=== PATIENT | female | born 1960 | race African-American/Black ===

== ENCOUNTER 2016-10-23 18:35 | Emergency (ER) | payer SELFPAY ==
[~2016-10-23] VITALS: Ht 165.1 cm; Wt 79.4 kg
[~2016-10-23 18:35] MED LIST: LEVO500T8 PO; METH-37 PO; METR500T4 PO; NAPR500T3 PO
[2016-10-23 19:00] VITALS: BP 138/87
--- NOTE | 2016-10-23 19:02 | PHYS DOC ---
General Chief Complaint: DENTAL PROBLEM Stated Complaint: DENTAL PAIN Time Seen by MD: 18:37 Source: patient Exam Limitations: no limitations Problems: History of Present Illness Initial Comments Pt is 56/F to ED c/o dental pain. Pt states pain since yesterday, OTC meds not helping. Affedted teeth 4-5, c/o pain and gum swelling/darkening. No fever/chills/n/v/d/malaise/RUSSELL/jaw pain. No DDS. Timing/Duration: yesterday Severity: severe Location: dental Prearrival Treatment: over the counter meds Modifying Factors: improves with other Associated Symptoms: tooth pain Allergies: Coded Allergies: No Known Drug Allergies (Unverified , 08/28/15) Past Medical History Medical History: no pertinent history Surgical History: noncontributory Family History Significant Family History: no pertinent family hx Social History Smoker: cigarettes Alcohol: none Drugs: none Constitutional: denies chills, denies diaphoresis, denies fever, denies malaise Ears: denies pain, denies tinnitus Nose: denies congestion, denies epistaxis Mouth: see HPI Throat: denies pain, denies swelling, denies neck stiffness, denies painful swallowing Respiratory: denies cough, denies shortness of breath, denies wheezing Cardiovascular: denies chest pain, denies palpitations, denies syncope Gastrointestinal: denies nausea, denies vomiting Physical Exam General Appearance: no apparent distress Eyes: bilateral eye EOMI, bilateral eye PERRL, bilateral eye normal inspection Nose: normal inspection Mouth/Throat: other (teeth 4-5 caries with gingival swell/darkening, no purulence/jaw pain) Neck: non-tender, supple, trachea midline Cardiovascular/Respiratory: normal peripheral pulses, no respiratory distress 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 Pt expressed agreement/understanding with treatment plan Departure Time of Disposition: 19:00 Disposition: 01 HOME, SELF-CARE Diagnosis: dental caries, tobaccoism Condition: GOOD Patient Instructions: Dental Caries, Smoking Cessation Additional Instructions: [place] and floss regularly. Stop smoking. Rx: amoxicillin, norco 5mg #15 Follow up with a dentist next available appointment to resolve this issue. Call tomorrow morning to schedule appointment. Return to ED with new or changing symptoms. KAEL OLIVIA DO Oct 23, 2016 19:02
[2016-10-23] MEDS ORDERED: HYDR-971 PO (19:04)
[2016-10-23] MEDS ORDERED: AMOX875T PO (19:04)
[2016-10-23] MEDS ORDERED: AMOXICILLIN 500 MG CAPSULE PO ONE (19:30)
[2016-10-23] MEDS ORDERED: HYDROCODONE/APAP 7.5/325MG TABLET. PO ONE (19:30)
== END 2016-10-23 19:20 | disposition home or self-care (01) ==
LOC: ER 18:35
DX: K02.9 Dental caries, unspecified (principal); F17.210 Nicotine dependence, cigarettes, uncomplicated
CPT/HCPCS: 99283

== ENCOUNTER 2016-11-10 14:51 | Emergency (ER) | payer SELFPAY ==
[~2016-11-10] VITALS: Ht 165.1 cm; Wt 81.0 kg
[2016-11-10 14:51] VITALS: BP 152/95
[~2016-11-10 14:51] MED LIST changes: +AMOX875T PO; +HYDR-971 PO
--- NOTE | 2016-11-10 15:10 | PHYS DOC ---
General Chief Complaint: DENTAL PROBLEM Stated Complaint: Dental Pain Time Seen by MD: 15:07 Problems: History of Present Illness Initial Comments Pt is 56/F to ED c/o dental pain. Pt states her dental pain persists teeth 4-5. When asked if she'd followed up with dentist as recommended "oh I don't have a dentist." I reminded her that she notified me last ED visit she had one in mind to follow up with and would call to schedule appt LEYLA. "Well you know I don't have a car, I can't go see a dentist." No new or progressive symptoms, no RUSSELL/jaw pain/fever/chills/malaise/n/v. Requesting pain meds. Pt was seen here by me 10/23/16 for same problem. That visit pt told me she did not have a dentist personally but intended to follow up with one recommended to her. I advised her she had to f/u with dentist, that we would not continue to rx pain medications if she didn't seek treatment. Timing/Duration: other Severity: severe Location: dental Prearrival Treatment: over the counter meds, prescription meds Modifying Factors: improves with other Associated Symptoms: tooth pain Allergies: Coded Allergies: No Known Drug Allergies (Unverified , 08/28/15) Past Medical History Medical History: no pertinent history Surgical History: noncontributory Family History Significant Family History: no pertinent family hx Social History Smoker: cigarettes Alcohol: none Drugs: none Constitutional: denies chills, denies diaphoresis, denies fever, denies malaise Ears: denies pain, denies tinnitus Nose: denies clots, denies congestion Mouth: see HPI Throat: denies pain, denies swelling, denies neck stiffness Respiratory: denies cough, denies shortness of breath Cardiovascular: denies chest pain, denies palpitations Gastrointestinal: denies nausea, denies vomiting Musculoskeletal: denies joint swelling, denies neck pain Neurological: denies headache, denies numbness, denies paresthesia Physical Exam General Appearance: obese (pained expression) Eyes: bilateral eye EOMI, bilateral eye PERRL, bilateral eye normal inspection Nose: normal inspection Mouth/Throat: other (mild discoloration gingiva tooth 5, no purulence/bony TTP improved from prior ED visit) Neck: non-tender, supple Cardiovascular/Respiratory: normal peripheral pulses, normal breath sounds 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 ED can provide symptom control and help avoid serious infection complications. It is a medical risk to you to continue to prescribe pain medications from the ED without treating the actual cause. Rx: ibuprofen 800mg, tylenol #3 (five) for severe breakthru pain. Stop smoking, seek medical assistance if necessary. Per your request ED staff will provide you information about [facility] dental school , [facility], and [facility]. Call today, schedule next available dental appointment. Return with new/changing symptoms. KAEL OLIVIA DO Nov 10, 2016 15:10
[2016-11-10] MEDS ORDERED: ACET-704 PO (15:20)
[2016-11-10] MEDS ORDERED: IBUP800T PO (15:20)
[2016-11-10] MEDS ORDERED: CEPH500C PO (15:20)
== END 2016-11-10 15:21 | disposition home or self-care (01) ==
LOC: ER 14:51
DX: K02.9 Dental caries, unspecified (principal); F17.210 Nicotine dependence, cigarettes, uncomplicated; Z91.19 Patient's noncompliance with other medical treatment and regimen
CPT/HCPCS: 99283

== ENCOUNTER 2017-06-16 12:01 | Emergency (ER) | payer SELFPAY ==
[~2017-06-16] VITALS: Ht 167.6 cm; Wt 79.4 kg
[~2017-06-16 12:01] MED LIST changes: +ACET-704 PO; +CEPH500C PO; +IBUP800T19 PO; -METR500T4 PO; +METR500T8 PO; -NAPR500T3 PO; +NAPR500T4 PO
[2017-06-16 12:59] VITALS: BP 128/85
--- NOTE | 2017-06-16 13:20 | PHYS DOC ---
General Chief Complaint: WRIST PAIN Stated Complaint: LEFT WRIST PAIN Time Seen by MD: 12:40 Source: patient Exam Limitations: no limitations Problems: History of Present Illness Initial Comments Patient is a 56-year-old female who comes in the ED complaining of left wrist pain. Patient states that she's had worsening medial left wrist pain for the past 2 months. Upon receiving report from nursing imaging ordered prior to my seeing the patient due to heavy ED volume. Imaging negative, patient states that she has trouble/severe pain with radial deviation at the wrist. She states that she feels like something is grinding up her medial radius and notes there is some swelling. 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 She states the pain is severe with palpation and range of motion at the wrist denies fever chills sweats or myalgias. No prior evaluation [id number] medications helped some with the pain but did not resolve the condition. Onset: other Severity: severe Pain/Injury Location: left forearm, left wrist Method of Injury: unknown Modifying Factors: worse with jarring, worse with movement, improves with rest Allergies: Coded Allergies: No Known Drug Allergies (Unverified , 08/28/15) Past Medical History Medical History: no pertinent history Surgical History: noncontributory Family History Significant Family History: no pertinent family hx Social History Smoker: cigarettes Alcohol: none Drugs: none Review of Systems Constitutional: denies chills, denies diaphoresis, denies fever Respiratory: denies cough, denies shortness of breath Cardiovascular: denies chest pain, denies palpitations Gastrointestinal: denies diarrhea, denies nausea, denies vomiting Musculoskeletal: see HPI Skin: see HPI Psychiatric/Neurological: denies numbness, denies paresthesia, denies pre- existing deficit, denies tingling, denies weakness (ecchymotic) Physical Exam General Appearance: WD/WN, no apparent distress Neck: non-tender, supple Cardiovascular/Respiratory: normal peripheral pulses (smoking), no respiratory distress Back: no CVA tenderness, no vertebral tenderness Elbow/Forearm: swelling (mild swelling at the distal medial radius) Wrist: soft tissue tenderness, swelling (positive left Bryon test) Neurologic/Tendon: normal sensation, normal motor functions Psychiatric: alert, oriented x 3 Orders, Labs, Meds PATIENT: BRITTNEY SMITH ACCOUNT: [id number] : 1960 LOCATION: ER AGE: 56 SEX: F EXAM STATUS: REG ER ORD. PHYSICIAN: KAEL OLIVIA DO REASON: atraumatic wrist pain PROCEDURE: WRIST 3V LEFT 4 view study of the left wrist History: Left wrist pain for a few months. No known recent injury. Findings: No acute fracture or dislocation or osteolytic process is seen. Radiocarpal articulation is maintained. No significant change is seen. IMPRESSION: No significant osseous abnormality is evident. DICTATED AND SIGNED BY: SKYE ZAPATA MD DATE: 06/16/17 1313 CC: PCP,KELLY; KAEL OLIVIA DO ~ I discussed de Quervain's tenosynovitis treatment and prognosis. Patient refuses injection treatment at this time, I discussed prescription and over-the- counter medications as well as icing and wrist splint. I discussed signs and symptoms to monitor as well as indications for urgent return to the department. I discussed smoking cessation patient's questions were answered to her satisfaction she expressed agreement and understanding with the treatment plan. She was neurovascularly intact after splint placed. Departure Time of Disposition: 13:37 Disposition: 01 HOME, SELF-CARE Diagnosis: de Quervain's tenosynovitis Condition: GOOD Patient Instructions: De Quervain's Disease Additional Instructions: Wear thumb spica splint until follow-up with your doctor. No use of left hand until cleared by your doctor. Ice to affected area 20 minutes 4-6 times daily. [id number] ibuprofen for baseline discomfort. Prescription: Prednisone 20 mg quantity 10, [place] 5 mg quantity 5 Follow-up with your doctor in 1-2 weeks for recheck. May need orthopedics referral as outpatient. Return to ED with new or changing symptoms. KAEL OLIVIA DO Jun 16, 2017 13:20
[2017-06-16] MEDS ORDERED: HYDR-971 PO (13:37)
[2017-06-16] MEDS ORDERED: PRED20TA PO (13:37)
== END 2017-06-16 14:07 | disposition home or self-care (01) ==
LOC: ER 12:01
DX: M65.4 Radial styloid tenosynovitis [de Quervain] (principal); F17.210 Nicotine dependence, cigarettes, uncomplicated
CPT/HCPCS: 29125; 73110; 99284-25

== ENCOUNTER 2019-01-13 11:58 | Emergency (ER) | payer SELFPAY ==
[~2019-01-13] VITALS: Ht 167.6 cm; Wt 81.0 kg
[~2019-01-13 11:58] MED LIST changes: +HYDR-3165 PO; -HYDR-971 PO; +METR-34 PO; -METR500T8 PO; +NAPR-514 PO; -NAPR500T4 PO; +PRED20TA PO
[2019-01-13 12:00] VITALS: BP 153/93
[2019-01-13] MEDS ORDERED: DICL50TA4 PO (12:25)
[2019-01-13] MEDS ORDERED: AMOX500C PO (12:25)
--- NOTE | 2019-01-13 12:26 | PHYS DOC ---
Past History Past Medical History: Arthritis Past Surgical History: Hysterectomy Smoking: Less than 1pk/day Additional Smoking Information: 2-3 PER DAY Alcohol Use: Occasionally Drug Use: None Adult General Chief Complaint Chief Complaint: DENTAL PROBLEM HPI HPI Patient is a 58-year-old female presents to the emergency department for evaluation of right upper facial swelling, and dental pain in her right upper an terior molar. She has not had any purulent discharge in her mouth, voice changes, or difficulty breathing. Palpation of the affected areas worsen her pain. She has not had any fevers or chills. Review of Systems Review of Systems Constitutional: Denies fever or chills [] Eyes: Denies change in visual acuity, redness, or eye pain [] HENT: Denies nasal congestion or sore throat [] Respiratory: Denies cough or shortness of breath [] Neurologic: Denies headache, focal weakness or sensory changes [] Allergies Allergies Allergies Coded Allergies Type Severity Reaction Last Updated Verified No Known Drug Allergies 01/13/19 No Physical Exam Physical Exam PHYSICAL EXAM: CONSTITUTIONAL: Well developed, well nourished HEAD: normocephalic, atraumatic EENT: PERRL, EOMI. Conjunctivae normal color, sclerae non-icteric; moist mucous membranes. There are several missing teeth, with tenderness to palpation of the right upper anterior molar, without any gross exam evidence of dental abscess in the gingival surface. There is soft tissue swelling on the right face, and the maxillary area, with tenderness to palpation, but no physical exam evidence of cutaneous abscess, warmth, or erythema to the skin. The airways pain. NECK: Supple, non-tender; no meningismus. LUNGS: Lungs CTA, breathing even and unlabored. Normal air movement. HEART: Regular rate and rhythm, no murmur CHEST: No deformity; non-tender SKIN: No rash; no diaphoresis NEURO: Alert; normal speech and cognition; CN's grossly intact; strength grossly intact without focal deficit. Current Patient Data Vital Signs Vital Signs Date Time Temp Pulse Resp B/P (MAP) Pulse Ox O2 Delivery O2 Flow Rate FiO2 01/13/19 12:00 98.3 94 20 97 Room Air EKG EKG [] Radiology/Procedures Radiology/Procedures [] Course & Med Decision Making Course & Med Decision Making I discussed importance of smoking cessation with the patient, the need for dental follow-up, and return precautions. The patient will be given resources to facilitate dental follow-up. Dragon Disclaimer Dragon Disclaimer This electronic medical record was generated, in whole or in part, using a voice recognition dictation system. Departure Departure: Impression: Primary Impression: Pain, dental Additional Impression: Dental abscess Disposition: 01 HOME, SELF-CARE Condition: STABLE Referrals: PCP,NO (PCP) Patient Instructions: Dental Abscess, Dental Pain Scripts Diclofenac Sodium (DICLOFENAC SODIUM) 50 Mg Tablet.dr 1 TAB PO TID PRN for PAIN, #20 TAB 0 Refills Prov: MAHIN MONET MD 01/13/19 Amoxicillin (AMOXICILLIN) 500 Mg Capsule 1 CAP PO TID for -, #30 CAP Prov: MAHIN MONET MD 01/13/19 Problem Qualifiers MAHIN MONET MD Jan 13, 2019 12:26
[2019-01-13] MEDS ORDERED: IBUPROFEN 400 MG TABLET. PO ONE ×2 (12:35→12:45)
== END 2019-01-13 12:34 | disposition home or self-care (01) ==
LOC: ER 11:58
DX: K04.7 Periapical abscess without sinus (principal); M19.90 Unspecified osteoarthritis, unspecified site; F17.200 Nicotine dependence, unspecified, uncomplicated
CPT/HCPCS: 99283

== ENCOUNTER 2019-02-06 10:40 | Emergency (ER) | payer SELFPAY ==
[~2019-02-06] VITALS: Ht 167.6 cm; Wt 86.4 kg
[~2019-02-06 10:40] MED LIST changes: +AMOX500C PO; +DICL50TA4 PO
--- NOTE | 2019-02-06 11:05 | PHYS DOC ---
Past History Past Medical History: Arthritis Past Surgical History: Cholecystectomy, Hysterectomy Smoking: Less than 1pk/day Alcohol Use: Occasionally Drug Use: None Adult General Chief Complaint Chief Complaint: SHOULDER INJURY [facility] HPI 58-year-old female presents with left shoulder pain. She tells me that she has had posterior shoulder pain in this area a few months. It feels like a knife being pushed in and turned. Along the posterior superior aspect of that shoulder. She denies any trauma or particular event when this started. It has been gradually getting worse. It is there all the time now. She gets some relief when she puts a hot pad on that area, but the pain resumes when she takes it off. She's been taking Tylenol and ibuprofen without relief. She comes in today because now there is pain radiating down across her deltoid toward the elbow. She has not had that before. This feeling started after she woke up this morning. She believes she has decreased strength due to the pain. She denies fever or chills. No history of previous injury to her shoulder or neck. She has no other concerns or complaints at this time. Review of Systems Review of Systems Constitutional: Denies fever or chills [] Eyes: Denies change in visual acuity, redness, or eye pain [] HENT: Denies nasal congestion or sore throat [] Respiratory: Denies cough or shortness of breath [] Cardiovascular: No additional information not addressed in HPI [] GI: Denies abdominal pain, nausea, vomiting, bloody stools or diarrhea [] : Denies dysuria or hematuria [] Musculoskeletal: Left shoulder pain[] Integument: Denies rash or skin lesions [] Neurologic: Denies headache, focal weakness or sensory changes [] Endocrine: Denies polyuria or polydipsia [] All other systems were reviewed and found to be within normal limits, except as documented in this note. Allergies Allergies Allergies Coded Allergies Type Severity Reaction Last Updated Verified No Known Drug Allergies 01/13/19 No Physical Exam Physical Exam Constitutional: Well developed, well nourished, no acute distress, non-toxic appearance. [] HENT: Normocephalic, atraumatic, bilateral external ears normal, oropharynx moist, no oral exudates, nose normal. [] Eyes: PERRLA, EOMI, conjunctiva normal, no discharge. [] Neck: Normal range of motion, no tenderness, supple, no stridor. [] Cardiovascular:Heart rate regular rhythm, no murmur [] Lungs & Thorax: Bilateral breath sounds clear to auscultation [] Abdomen: Bowel sounds normal, soft, no tenderness, no masses, no pulsatile masses. [] Skin: Warm, dry, no erythema, no rash. [] Back: No tenderness, no CVA tenderness. [] Extremities: Tenderness over the left supraspinatus, pain with empty can test, strength 5 out of 5 compared to right[] Neurologic: Alert and oriented X 3, normal motor function, normal sensory function, no focal deficits noted. [] Psychologic: Affect normal, judgement normal, mood normal. [] Current Patient Data Vital Signs Vital Signs Date Time Temp Pulse Resp B/P (MAP) Pulse Ox O2 Delivery O2 Flow Rate FiO2 02/06/19 10:53 98.1 90 18 98 Room Air EKG EKG [] Radiology/Procedures Radiology/Procedures [] Course & Med Decision Making Course & Med Decision Making Pertinent Labs and Imaging studies reviewed. (See chart for details) The patient's x-ray shows some arthritis, acute findings. I suspect that this is supraspinatus tendinitis. I also cannot rule out that this is referred pain coming from her cervical spine. I've advised the patient to establish with a PCP in follow-up as soon as possible. She could benefit from further workup as well as physical therapy. I looked the patient up in the [facility] database and she did not have a file. I will discharge her with [place] 5/325 for her pain. She can also use ibuprofen at the same time. She is stable for discharge at this time. [] Dragon Disclaimer Dragon Disclaimer This electronic medical record was generated, in whole or in part, using a voice recognition dictation system. Departure Departure: Impression: Primary Impression: Supraspinatus tendinitis Disposition: 01 HOME, SELF-CARE Condition: STABLE Referrals: PCP,KELLY (PCP) Patient Instructions: Rotator Cuff Tendinitis Scripts Hydrocodone Bit/Acetaminophen (NORCO 5-325 TABLET) 1 Each Tablet 1 TAB PO PRN Q6HRS PRN for PAIN, #14 TAB 0 Refills Prov: RODNEY MARTINEZ DO 02/06/19 Problem Qualifiers Primary Impression: Supraspinatus tendinitis Laterality: left Qualified Codes: M75.92 - Shoulder lesion, unspecified, left shoulder RODNEY MARTINEZ DO Feb 06, 2019 11:05
[2019-02-06 11:57] VITALS: BP 154/87
[2019-02-06] MEDS ORDERED: HYDROcodone/APAP 5/325MG 1 TAB TABLET PO ONE (12:00)
[2019-02-06] MEDS ORDERED: HYDR-3165 PO (12:21)
--- NOTE | 2019-02-06 13:01 | RAD ---
EXAM: LEFT SHOULDER 3 VIEWS. HISTORY: Posterior left shoulder pain. COMPARISON: None. FINDINGS: No fractures are identified. Glenohumeral joint spaces and alignment are maintained. Acromioclavicular osteoarthritis is moderate. There is mild superior subluxation of the distal clavicle by approximately 4 mm. The coracoclavicular densities is maintained. IMPRESSION: 1. Mild superior subluxation of the distal clavicle with moderate acromioclavicular osteoarthritis. An examination with and without weights could further assess for acromioclavicular instability if there is persistent concern. Electronically signed by: Christian Jarquin MD (02/06/2019 12:59 PM) [facility]
== END 2019-02-06 12:35 | disposition home or self-care (01) ==
LOC: ER 10:40
DX: M75.92 Shoulder lesion, unspecified, left shoulder (principal); M19.90 Unspecified osteoarthritis, unspecified site; F17.200 Nicotine dependence, unspecified, uncomplicated
CPT/HCPCS: 73030; 99284

== ENCOUNTER 2019-10-02 15:06 | Emergency (ER) | payer SELFPAY ==
[~2019-10-02] VITALS: Ht 167.6 cm; Wt 90.9 kg
[2019-10-02 15:20] VITALS: BP 187/108
--- NOTE | 2019-10-02 16:47 | RAD ---
EXAM: Right lower extremity venous Doppler. HISTORY: Right lower extremity pain/swelling. COMPARISON: None. FINDINGS: Grayscale and Doppler analysis of the right lower extremity deep venous system was performed with graded compression and augmentation. The common femoral, greater saphenous, superficial femoral, popliteal and calf veins were assessed. There is no evidence of deep venous thrombosis. IMPRESSION: 1. No evidence of deep venous thrombosis. Electronically signed by: Christian Jarquin MD (10/02/2019 4:44 PM) [id number]
[2019-10-02] MEDS ORDERED: DICL50TA4 PO (17:52)
--- NOTE | 2019-10-02 17:53 | PHYS DOC ---
Past History Past Medical History: No Pertinent History, Arthritis Past Surgical History: Cholecystectomy, Hysterectomy Additional Past Surgical Histo: hernia sx Smoking: Less than 1pk/day Alcohol Use: Occasionally Drug Use: None Adult General Chief Complaint Chief Complaint: LOWER EXT PAIN [facility] HPI Patient is a 59-year-old female who presents with complaint of right leg pain and concerns that she may have a blood clot. Patient states that leg has been hurting for about a week now. She does indicate that pain is worsened with weightbearing. She denies any injury to the leg. She rates pain at a 4 out of 10. Patient indicates that she has a family history of blood clots and is concerned that she may have a blood clot herself. She denies any chest pain or shortness breath. She also denies any cough.[] Review of Systems Review of Systems Constitutional: Denies fever or chills [] Respiratory: Denies cough or shortness of breath [] Cardiovascular: No additional information not addressed in HPI [] GI: Denies abdominal pain, nausea, vomiting, bloody stools or diarrhea [] Musculoskeletal: Complains of right leg pain [] Integument: Denies rash or skin lesions [] Neurologic: Denies headache, focal weakness or sensory changes [] All other systems were reviewed and found to be within normal limits, except as documented in this note. Allergies Allergies Allergies Coded Allergies Type Severity Reaction Last Updated Verified No Known Drug Allergies 01/13/19 No Physical Exam Physical Exam Constitutional: Well developed, well nourished, no acute distress, non-toxic appearance. [] HENT: Normocephalic, atraumatic, bilateral external ears normal, oropharynx moist, no oral exudates, nose normal. [] Eyes: PERRLA, EOMI, conjunctiva normal, no discharge. [] Neck: Normal range of motion, no tenderness, supple, no stridor. [] Cardiovascular: Regular rate and rhythm[] Lungs & Thorax: Bilateral breath sounds clear to auscultation [] Abdomen: Bowel sounds normal, soft, no tenderness. [] Skin: Warm, dry, no erythema, no rash. [] Extremities: Right lower leg demonstrates some tenderness in the mid calf, no edema. [] Neurologic: Alert and oriented X 3, no focal deficits noted. [] Current Patient Data Vital Signs Vital Signs Date Time Temp Pulse Resp B/P (MAP) Pulse Ox O2 Delivery O2 Flow Rate FiO2 10/02/19 15:20 92 18 187/108 (134) 97 EKG EKG [] Radiology/Procedures Radiology/Procedures [] Impressions: PROCEDURE: VENOUS LOWER EXTREMITY RIGHT EXAM: Right lower extremity venous Doppler. HISTORY: Right lower extremity pain/swelling. COMPARISON: None. FINDINGS: Grayscale and Doppler analysis of the right lower extremity deep venous system was performed with graded compression and augmentation. The common femoral, greater saphenous, superficial femoral, popliteal and calf veins were assessed. There is no evidence of deep venous thrombosis. IMPRESSION: 1. No evidence of deep venous thrombosis. Electronically signed by: Christian Jarquin MD (10/02/2019 4:44 PM) [id number] Course & Med Decision Making Course & Med Decision Making Pertinent Labs and Imaging studies reviewed. (See chart for details) [] Dragon Disclaimer Dragon Disclaimer This electronic medical record was generated, in whole or in part, using a voice recognition dictation system. Departure Departure: Impression: Primary Impression: Right leg pain Disposition: 01 HOME, SELF-CARE Condition: STABLE Referrals: PCP,NO (PCP) Patient Instructions: Musculoskeletal Pain Scripts Diclofenac Sodium (DICLOFENAC SODIUM) 50 Mg Tablet. 1 TAB PO BID PRN for PAIN, #20 TAB Prov: ALDA RAMESH Jr. DO 10/02/19 ALDA RAMESH Jr. DO Oct 02, 2019 17:53
== END 2019-10-02 18:00 | disposition home or self-care (01) ==
LOC: ER 15:06
DX: M79.604 Pain in right leg (principal); R22.41 Localized swelling, mass and lump, right lower limb; M19.90 Unspecified osteoarthritis, unspecified site; F17.200 Nicotine dependence, unspecified, uncomplicated
CPT/HCPCS: 93971; 99284-25

== ENCOUNTER 2020-06-24 13:38 | Emergency (ER) | payer SELFPAY ==
[~2020-06-24] VITALS: Ht 167.6 cm; Wt 90.9 kg
[2020-06-24 13:44] VITALS: BP 180/90
[2020-06-24] MEDS ORDERED: KETOROLAC 60 MG/2 ML VIAL. IM ONE (14:15)
--- NOTE | 2020-06-24 14:24 | PHYS DOC ---
Past History Past Medical History: No Pertinent History, Arthritis Past Surgical History: Cholecystectomy, Hysterectomy Additional Past Surgical Histo: hernia sx Smoking: Less than 1pk/day Alcohol Use: Occasionally Drug Use: None Adult General Chief Complaint Chief Complaint: UPPER EXTREMITY PAIN [facility] HPI Patient is a 59 year old female who presents with right wrist and thumb pain. Patient states she woke up approximately 7 days ago with pain in her right wrist that radiated down to her thumb area, denies injury. Patient states that the pain was about a 1/10 on a 1-10 pain scale and progressively became worse to a 10/10 pain on a 1-10 pain scale approximately 2 days ago. Patient states she has taken [id number] ibuprofen, Tylenol, and Naprosyn without relief. Patient states she last took Tylenol this morning 500 mg without relief. Patient states she does not work, however she was taking care of her family members at home over the past year who have recently including her mother, her father, and her daughter who approximately 6 months ago. Patient denies any recent fever or chills, visual changes, or nasal congestion cough or shortness of breath. Patient denies any chest pains, abdominal pains, nausea, vomiting, diarrhea, or constipation. Patient denies any problems urinating, patient does state that she has some tailbone pain which has been chronic for several years. Patient states she has no skin rashes, denies headaches, swelling of her glands, recent depressions or anxieties, patient denies homicidal or suicidal ideation. Patient denies any Covid virus symptoms, does not wish to be tested for the Covid virus today. Review of Systems Review of Systems Constitutional: Denies fever or chills Eyes: Denies change in visual acuity, redness, or eye pain HENT: Denies nasal congestion or sore throat Respiratory: Denies cough or shortness of breath Cardiovascular: No additional information not addressed in HPI GI: Denies abdominal pain, nausea, vomiting, bloody stools or diarrhea : Denies dysuria or hematuria Musculoskeletal: Complains of chronic tailbone pain that she has had for years, patient's main concern is her right wrist pain that radiates to her right thumb, without relief taking [id number] Tylenol, ibuprofen, Naprosyn. Integument: Denies rash or skin lesions Neurologic: Denies headache, focal weakness or sensory changes Psychiatric: Patient denies recent anxieties, depressions, homicidal or suicidal ideation. All other systems were reviewed and found to be within normal limits, except as documented in this note. Current Medications Current Medications Patient denies being on any home prescription medications. Current Medications Medications (Trade) Dose Ordered Sig/[facility] Start Time Stop Time Status Last Admin Dose Admin Ketorolac Tromethamine (Toradol Im) 60 mg 1X ONCE 06/24/20 14:15 06/24/20 14:16 UNV Allergies Allergies Allergies Coded Allergies Type Severity Reaction Last Updated Verified No Known Drug Allergies 01/13/19 No Physical Exam Physical Exam Constitutional: Well developed, well nourished, no acute distress, non-toxic appearance. HENT: Normocephalic, atraumatic, bilateral external ears normal, oropharynx moist, no oral exudates, nose normal. Eyes: PERRLA, EOMI, conjunctiva normal, no discharge. Neck: Normal range of motion, no tenderness, supple, no stridor. Cardiovascular:Heart rate regular rhythm, no murmur Lungs & Thorax: Bilateral breath sounds clear to auscultation Abdomen: Bowel sounds normal, soft, no tenderness, no masses, no pulsatile masses. Skin: Warm, dry, no erythema, no rash. Back: No tenderness, no CVA tenderness. Extremities: No tenderness, no cyanosis, no clubbing, ROM intact, no edema to all extremities except for patient's right wrist no swelling appreciated, no crepitus, no deformity, limited AROM related to pain, limited PROM related to patient's complaint of pain, pain to palpation to volar and dorsal radial zone surface area, skin normal temperature to touch, distal cap refill less than 2 seconds, no erythema, no ecchymosis noted, unable to perform Nehal's test or Phalen's test related to patient's pain. Neurologic: Alert and oriented X 3, normal motor function, normal sensory function, no focal deficits noted. Psychologic: Affect normal, judgement normal, mood normal. EKG EKG [] Radiology/Procedures Radiology/Procedures []STATUS: [place] PHYSICIAN: MARLENY DUGGAN APRN REASON: NONTRAUMATIC PAIN/SWELLING RT DISTAL RADIUS TO THUMB PROCEDURE: HAND RIGHT 3V Examination: WRIST 3V RIGHT, HAND RIGHT 3V History: NONTRAUMATIC PAIN/SWELLING RT DISTAL RADIUS TO THUMB Comparison/Correlation: None Findings: 3 images of the right hand in 3 images of the right wrist were obtained. Rings are present about the second and fourth proximal phalanges. Degenerative remodeling of the interphalangeal joint is present. No displaced fracture or bone destruction. Soft tissues are unremarkable. Mild distal radioulnar joint degenerative change present. Impression: Degenerative changes corresponding to age. No acute process. Electronically signed by: Andrade Alexis MD (06/24/2020 2:58 PM) [id number] DICTATED AND SIGNED BY: ANDRADE ALEXIS MD DATE: 06/24/20 1458 CC: MARLENY DUGGAN APRN; PCP,NO ~ Heart Score Risk Factors: Risk Factors: DM, Current or recent (<one month) smoker, HTN, HLP, family history of CAD, obesity. Risk Scores: Risk Factors: DM, Current or recent (<one month) smoker, HTN, HLP, family history of CAD, obesity. Course & Med Decision Making Course & Med Decision Making Pertinent Labs and Imaging studies reviewed. (See chart for details) 59-year-old female patient presents emergency department complaining of nontraumatic pain to the right wrist that started approximately week ago and became increasingly worse to where she rated a 10/10 pain on a 1-10 pain scale. Patient is complaint of pain is not congruent with physical findings, diagnosis of carpal tunnel most likely related to presentation and physical examination. X-rays read by house radiologist negative for acute process, showed degenerative changes only. Patient was given 60 mg of IM Toradol which helped with her pain upon reexamination patient was able to move wrist and thumb into normal position. Explained findings to patient will give 80 mg Depo-Medrol IM prior to discharge, use of Velcro wrist splint until reexamined by her primary care physician. This is unlikely a cervical radiculopathy, cervicals spondylitic myelopathy, brachial plexopathy, median neuropathy, motor neuron disease, fibromyalgia, or compartment syndrome related to no trauma or no recent trauma. Patient gave verbal understanding of discharge home medications of 600 mg Motrin, 50 mg tramadol, Medrol Dosepak, use of Velcro wrist splint, follow- up soon with primary care physician for reexamination. Patient had no further questions or concerns, patient discharged home without incident. Dragon Disclaimer Dragon Disclaimer This electronic medical record was generated, in whole or in part, using a voice recognition dictation system. Departure Departure: Impression: Primary Impression: Carpal tunnel syndrome of right wrist Disposition: 01 DC HOME SELF CARE/HOMELESS Condition: IMPROVED Referrals: PCPKELLY (PCP) Patient Instructions: Carpal Tunnel Syndrome Additional Instructions: Take prescribed medications as directed, use the wrist splint for comfort until you see your doctor soon. Return to the emergency department for worsening symptoms Scripts Tramadol Hcl (TRAMADOL HCL) 50 Mg Tablet 50 MG PO PRN Q6HRS PRN for PAIN, #10 TAB 0 Refills Prov: MARLENY DUGGAN APRN 06/24/20 Methylprednisolone (MEDROL) 4 Mg Tab.ds.pk 1 PKG PO UD for CARPAL TNNEL SYNDROME, #1 PKG 0 Refills Prov: MARLENY DUGGAN APRN 06/24/20 Ibuprofen (Ibu) 600 Mg Tablet 1 TAB PO Q6HRS for RIGHT WRIST PAIN for 7 Days, #28 TAB 0 Refills Prov: MARLENY DUGGAN APRN 06/24/20 MARLENY DUGGAN APRN Jun 24, 2020 14:24
--- NOTE | 2020-06-24 15:01 | RAD ---
Examination: WRIST 3V RIGHT, HAND RIGHT 3V History: NONTRAUMATIC PAIN/SWELLING RT DISTAL RADIUS TO THUMB Comparison/Correlation: None Findings: 3 images of the right hand in 3 images of the right wrist were obtained. Rings are present about the second and fourth proximal phalanges. Degenerative remodeling of the interphalangeal joint is present. No displaced fracture or bone destruction. Soft tissues are unremarkable. Mild distal radioulnar joint degenerative change present. Impression: Degenerative changes corresponding to age. No acute process. Electronically signed by: Andrade Yin MD (06/24/2020 2:58 PM) [id number]
[2020-06-24] MEDS ORDERED: methylPREDNISolone ACETATE 80 MG/ML VIAL. IM ONE (15:30)
[2020-06-24] MEDS ORDERED: IBUP-571 PO (15:34)
[2020-06-24] MEDS ORDERED: METH4TAB2 PO (15:34)
[2020-06-24] MEDS ORDERED: TRAM50TA PO (15:34)
== END 2020-06-24 15:48 | disposition home or self-care (01) ==
LOC: ER 13:38
DX: G56.01 Carpal tunnel syndrome, right upper limb (principal); M25.531 Pain in right wrist; M79.644 Pain in right finger(s); M19.90 Unspecified osteoarthritis, unspecified site; F17.200 Nicotine dependence, unspecified, uncomplicated; Z90.49 Acquired absence of other specified parts of digestive tract; Z90.710 Acquired absence of both cervix and uterus; Z98.890 Other specified postprocedural states
CPT/HCPCS: 73110; 73130; 96372; 99284; J1885

== ENCOUNTER 2020-10-19 10:27 | Inpatient (IN) | payer SELFPAY ==
[~2020-10-19] VITALS: Ht 165.1 cm; Wt 84.5 kg
[~2020-10-19 10:27] MED LIST changes: +IBUP-571 PO; +METH4TAB2 PO; +TRAM50TA PO
--- NOTE | 2020-10-19 10:41 | PHYS DOC ---
Past History Past Medical History: No Pertinent History, Arthritis Past Surgical History: Cholecystectomy, Hysterectomy Additional Past Surgical Histo: hernia sx Smoking: Less than 1pk/day Alcohol Use: Occasionally Drug Use: None General Adult EDM: Chief Complaint: UPPER EXTREMITY PAIN HPI: HPI: 60 yo F PMH OA and tobacco dependence presents to the ed with c/o sharp left shoulder and left scapular pain, radiating down her left arm and back stating " something ain't right doc." States she has had chronic left shoulder pain but it has significantly worsened since 2 PM yesterday, no relief with a "couple tablets of ibuprofen." Reports no routine primary care, is not on any blood pressure medicine. Patient reports both biological parents and even her daughter from congestive heart failure complications. EMR was reviewed and last CTA of the chest and pelvis was performed in 2013. Has no routine primary medical care-is aware she has hypertension but takes no medications for it. Denies any cocaine, alcohol or methamphetamine abuse. Review of Systems: Review of Systems: Constitutional: Denies fever or chills Eyes: Denies change in visual acuity HENT: Denies nasal congestion or sore throat Respiratory: Denies cough or shortness of breath or hemoptysis Cardiovascular: Denies chest pressure/heaviness/tightness or edema or syncope GI: Denies abdominal pain, nausea, vomiting, bloody stools or diarrhea : Denies dysuria or hematuria Musculoskeletal: Denies joint pain or swelling Integument: Denies rash or diaphoresis Neurologic: Denies headache, neck stiffness, focal weakness or sensory changes Endocrine: Denies polyuria or polydipsia Lymphatic: Denies swollen glands Psychiatric: Denies depression or anxiety Current Medications: Current Meds: Current Medications Medications (Trade) Dose Ordered Sig/Ld Start Time Stop Time Status Last Admin Dose Admin Diazepam (Valium) 5 mg 1X ONCE 10/19/20 10:45 10/19/20 10:46 UNV Ketorolac Tromethamine (Toradol Im) 15 mg 1X ONCE 10/19/20 10:45 10/19/20 10:46 UNV Allergies: Allergies: Allergies Coded Allergies Type Severity Reaction Last Updated Verified No Known Drug Allergies 01/13/19 No Physical Exam: PE: Constitutional: Well developed, well nourished, very emotional/crying, writhing in ED stretcher and appears very uncomfortable-paroxysmal pain (cramps? radiculopathy?) HENT: Normocephalic, atraumatic, Eyes: EOMI, conjunctiva normal, no discharge. Neck: Normal range of motion, supple, Cardiovascular: S1/2 present, regular rhythm Lungs & Thorax: Speaking in full sentences, bilateral equal chest rise, no tachypnea or increased work of breathing Abdomen: soft, no tenderness, Skin: Warm, dry, no erythema, no rash. [] Back: No midline tenderness or step offs, Extremities: equal radial pulses, no lower extremity edema Neurologic: Alert and oriented X 3, normal motor function, normal sensory function, no focal deficits noted. [] Psychologic: Affect normal, judgement normal, mood -suspect some associated anxiety Current Patient Data: Vital Signs: Vital Signs Date Time Temp Pulse Resp B/P (MAP) Pulse Ox O2 Delivery O2 Flow Rate FiO2 10/19/20 10:27 97.7 74 24 185/102 (129) 100 Room Air EKG: EKG: Sinus rhythm at 74 bpm, no axis deviation, prolonged QTC 504, diffuse T wave inversions 2, aVF, 3, V2 to V6, no ST elevations or ST depressions, no prior EKGs for comparison 1250 sinus rhythm at 50 bpm, no axis deviation, QTC 513, persistent T wave inversions 2, 3, aVF, V1 through V6, no ST elevations or depressions-EKG perform ed due to nonsustained wide-complex ventricular beats (following sinus beat) Radiology/Procedures: Radiology/Procedures: IMAGING REPORT Signed PATIENT: BRITTNEY SMITH ACCOUNT: [id number] : 1960 LOCATION: ER AGE: 60 SEX: F EXAM STATUS: REG ER ORD. PHYSICIAN: ISABELA DAVILA DO REASON: shoulder pain/scapula down arm/back r/o dssection PROCEDURE: CT ANGIO CHEST ABD PELVIS EXAM: CT angiography of the chest, abdomen and pelvis with intravenous contrast. HISTORY: Pain. Rule out dissection. TECHNIQUE: Computed tomographic images of the chest, abdomen and pelvis were obtained following the administration of intravenous contrast according to angiography protocol. Multiplanar reformatting was performed and three dimensional maximum intensity projection images were obtained. *One or more of the following individualized dose reduction techniques were utilized for this examination: 1. Automated exposure control. 2. Adjustment of the mA and/or kV according to patient size. 3. Use of iterative reconstruction technique. COMPARISON: 01/23/2014. FINDINGS: Chest: There is mild cardiomegaly. The thoracic aorta is normal in caliber. There is no aortic dissection. There is calcified atherosclerotic plaque involving the coronary arteries. There is a bovine aortic arch branching pattern, a normal variant. There are prominent mediastinal and hilar lymph nodes. There is no pleural effusion or pneumothorax. There is minimal apical p redominant emphysema. There is pleural posterior dependent and basilar atelectasis. There is no infiltrate. There is no suspicious pulmonary nodule. There is no suspicious osseous lesion. There are degenerative changes involving the thoracic spine. Abdomen and pelvis: The aorta is normal in caliber. There is calcified atherosclerotic plaque along the left lateral mid abdominal aortic wall. The aortic branch vessels are widely patent. No hepatic lesion is seen. The gallbladder is absent. There is pancreatic and downstream common bile duct dilatation. This can be seen with reservoir effect status post cholecystomy. The adrenal glands are unremarkable. There are tiny nonobstructing left renal stones. There is no appendicitis. There is no bowel obstruction. There is distal colonic diverticulosis. There is no diverticulitis. There is no lymphadenopathy. The bladder is unremarkable. The uterus is surgically absent. There is no suspicious osseous lesion. There are degenerative changes involving the lumbar spine. IMPRESSION: 1. No evidence of aortic dissection or alternative acute thoracic, abdominal or pelvic finding. 2. Common bile duct and pancreatic duct dilatation. This can be seen with reservoir effect status post cholecystomy. MRCP can be performed if this concern for an occult obstructing etiology. 3. Colonic diverticulosis. 4. Left nephrolithiasis. 5. Prominent mediastinal and hilar lymph nodes, likely physiologic or reactive in etiology. 6. Minimal emphysema. Electronically signed by: Neeru Martínez MD (10/19/2020 11:36 AM) [id number] DICTATED AND SIGNED BY: NEERU MARTÍNEZ MD DATE: 10/19/20 1131 CC: PCP,NO; ISABELA DAVILA DO ~MTH0 0 Heart Score: C/O Chest Pain: Yes HEART Score for Chest Pain: HEART Score for Chest Pain Response (Comments) Value History Moderately Suspicious 1 ECG Nonspecific Repolarizatio 1 Age >45 - < 65 1 Risk Factors >3 Risk Factors or Hx CAD 2 Troponin < Normal Limit 0 Total 5 Risk Factors: Risk Factors: DM, Current or recent (<one month) smoker, HTN, HLP, family history of CAD, obesity. Risk Scores: Score 0 - 3: 2.5% MACE over next 6 weeks - Discharge Home Score 4 - 6: 20.3% MACE over next 6 weeks - Admit for Clinical Observation Score 7 - 10: 72.7% MACE over next 6 weeks - Early Invasive Strategies Course & Med Decision Making: Course & Med Decision Making Pertinent Labs and Imaging studies reviewed. (See chart for details) Concern for atypical chest pain versus symptomatic hypertension. EKG with inferi or lateral T wave inversions/ischemia, no prior for baseline comparison. Brief EKG changes seen on monitoring specialist but not captured on EKG. Initial troponin negative. CTA chest on pelvis with no dissection. I do suspect some anxiety component given family medical history. I discussed with Dr. Gray who agrees with current plan, full consultation to follow. Patient accepted by Dr. Lee for further medical management, serial cardiac enzymes and full cardiology consultation. Patient stable at time of admission and agrees with this plan. I have spoken with the patient and/or caregivers. I have explained the patient's condition, diagnosis and treatment plan based on the information available to me at this time. I have answered the patient's and/or caregivers questions and answered any concerns. The patient and/or caregivers have as good an understanding of the patient's diagnosis, condition and treatment plan as can be expected at this point. The patient has been stabilized within the capability of the emergency department. The patient will be transported for further care and management or will be moved to an observation or inpatient service. I have communicated with the staff or medical practitioner taking over this patient's care. Simón Disclaimer: Simón Disclaimer: This electronic medical record was generated, in whole or in part, using a voice recognition dictation system. Departure Departure: Impression: Primary Impression: Atypical chest pain Additional Impression: Hypertension with goal of symptom management only Disposition: ADMITTED INPT THIS HOSP Admitting Physician: Kailyn Lee Condition: STABLE Referrals: PCP,KELLY (PCP) ISABELA DAVILA DO Oct 19, 2020 10:41
[2020-10-19] MEDS ORDERED: KETOROLAC 15 MG/ML VIAL. ONE (10:43)
[2020-10-19] MEDS ORDERED: diazePAM 5 MG TABLET. PO ONE (10:45)
--- NOTE | 2020-10-19 10:57 | EKG ---
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
[2020-10-19] MEDS ORDERED: IOHEXOL 350 MG/ML 100 ML VIAL. IV ONE (11:00)
[2020-10-19] MEDS ORDERED: HYDROmorphone PF 1 MG/ML DISP.SYRIN IVP ONE ×2 (11:00)
[2020-10-19] MEDS ORDERED: KETOROLAC 15 MG/ML VIAL. IM ONE (11:00)
[2020-10-19] MEDS ORDERED: ONDANSETRON PF 4 MG/2 ML VIAL. IVP ONE (11:00)
[2020-10-19] MEDS ORDERED: IV NORMAL SALINE 1,000ML 1,000 ML IV ONE ×2 (11:00)
[2020-10-19 11:10] LABS: BASO % 1 % (0-3); EOS # 0.1 x10^3/uL (0.0-0.7); EOS % 2 % (0-3); HEMATOCRIT 42.8 % (36.0-47.0); HEMOGLOBIN 14.2 g/dL (12.0-15.5); LYMPH # 1.9 x10^3/uL (1.0-4.8); LYMPH % 35 % (24-48); MEAN CORPUSCULAR HEMOGLOBIN 32 pg (25-35); MEAN CORPUSCULAR HGB CONC 33 g/dL (31-37); MEAN CORPUSCULAR VOLUME 95 fL (79-100); MONO # 0.4 x10^3/uL (0.0-1.1); MONO % 7 % (0-9); NEUT # 3.1 x10^3uL (1.8-7.7); NEUT % 55 % (31-73); PLATELET COUNT 258 x10^3/uL (140-400); RED BLOOD COUNT 4.49 x10^6/uL (3.50-5.40); RED CELL DISTRIBUTION WIDTH 14.1 % (11.5-14.5); WHITE BLOOD COUNT 5.6 x10^3/uL (4.0-11.0)
[2020-10-19 11:19] LABS: CALCIUM 8.9 mg/dL (8.5-10.1); CREATININE 0.6 mg/dL (0.6-1.0); POTASSIUM 3.6 mmol/L (3.5-5.1)
[2020-10-19 11:33] LABS: ALBUMIN 3.9 g/dL (3.4-5.0); ALBUMIN/GLOBULIN RATIO 1.1 (1.0-1.7); TOTAL BILIRUBIN 0.7 mg/dL (0.2-1.0); TOTAL PROTEIN 7.6 g/dL (6.4-8.2)
--- NOTE | 2020-10-19 11:38 | RAD ---
EXAM: CT angiography of the chest, abdomen and pelvis with intravenous contrast. HISTORY: Pain. Rule out dissection. TECHNIQUE: Computed tomographic images of the chest, abdomen and pelvis were obtained following the a dministration of intravenous contrast according to angiography protocol. Multiplanar reformatting was performed and three dimensional maximum intensity projection images were obtained. *One or more of the following individualized dose reduction techniques were utilized for this examina tion: 1. Automated exposure control. 2. Adjustment of the mA and/or kV according to patient size. 3. Use of iterative reconstruction technique. COMPARISON: 01/23/2014. FINDINGS: Chest: There is mild cardiomegaly. The thoracic aorta is normal in caliber. There is no aortic dissec tion. There is calcified atherosclerotic plaque involving the coronary arteries. There is a bovine ao rtic arch branching pattern, a normal variant. There are prominent mediastinal and hilar lymph nodes. There is no pleural effusion or pneumothorax. There is minimal apical predominant emphysema. There i s pleural posterior dependent and basilar atelectasis. There is no infiltrate. There is no suspicious pulmonary nodule. There is no suspicious osseous lesion. There are degenerative changes involving th e thoracic spine. Abdomen and pelvis: The aorta is normal in caliber. There is calcified atherosclerotic plaque along t he left lateral mid abdominal aortic wall. The aortic branch vessels are widely patent. No hepatic le luis is seen. The gallbladder is absent. There is pancreatic and downstream common bile duct dilatati on. This can be seen with reservoir effect status post cholecystomy. The adrenal glands are unremarka ble. There are tiny nonobstructing left renal stones. There is no appendicitis. There is no bowel obstruction. There is distal colonic diverticulosis. Ther e is no diverticulitis. There is no lymphadenopathy. The bladder is unremarkable. The uterus is surgi naomie absent. There is no suspicious osseous lesion. There are degenerative changes involving the lum bar spine. IMPRESSION: 1. No evidence of aortic dissection or alternative acute thoracic, abdominal or pelvic finding. 2. Common bile duct and pancreatic duct dilatation. This can be seen with reservoir effect status pos t cholecystomy. MRCP can be performed if this concern for an occult obstructing etiology. 3. Colonic diverticulosis. 4. Left nephrolithiasis. 5. Prominent mediastinal and hilar lymph nodes, likely physiologic or reactive in etiology. 6. Minimal emphysema. Electronically signed by: Neeru Truong MD (10/19/2020 11:36 AM) [id number]
[2020-10-19] MEDS ORDERED: NITROGLYCERIN SUBLINGUAL 0.4 MG BOTTLE OF 25. SL ONE (12:05)
[2020-10-19] MEDS: NITROGLYCERIN SUBLINGUAL 0.4 MG BOTTLE OF 25. SL PRN ×2 (12:10→12:52)
[2020-10-19 12:59] LABS: AMPHETAMINE/METHAMPHETAMINE NEG (NEG); BARBITURATES NEG (NEG); BENZODIAZEPINES NEG (NEG); CANNABINOIDS POS (NEG); COCAINE NEG (NEG); METHADONE NEG (NEG); OPIATES POS (NEG); PHENCYCLIDINE NEG (NEG)
[2020-10-19] MEDS ORDERED: MAGNESIUM SULFATE 1GM 100 ML IV ONE (13:00)
[2020-10-19 13:19] LABS: BACTERIA,URINE 0 /HPF (0-FEW); BILIRUBIN,URINE NEG (NEG); CLARITY,URINE CLEAR; COLOR,URINE STRAW; GLUCOSE,URINE NEG (NEG); NITRITE,URINE NEG (NEG); RBC,URINE OCC /HPF (0-2); SQUAMOUS EPITHELIAL CELL,UR FEW /LPF; UROBILINOGEN,URINE 0.2 mg/dL (0.2 mg/dL); WBC,URINE OCC /HPF (0-4)
--- NOTE | 2020-10-19 13:44 | EKG ---
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
[2020-10-19 13:51] VITALS: BP 143/80
[2020-10-19 14:49] VITALS: BP 165/84
--- NOTE | 2020-10-19 15:24 | NUR ---
The patient, BRITTNEY SMITH, 60 y/o, F admitted by REBECCA LING MD, was given written information regarding hospital policies, unit procedures and contact persons. Valuables were checked and VS taken, please see chart.
[2020-10-19] MEDS: CYCLOBENZAPRINE 10 MG TABLET. PO PRN (18:01)
--- NOTE | 2020-10-19 18:13 | HP ---
ADMIT DATE: 10/19/2020 HISTORY OF PRESENT ILLNESS: The patient is a 60-year-old -Maltese female patient who presented with a complaint of left upper extremity pain. She complained of very sharp left shoulder and left scapular pain radiating down to her left arm and back stating __ right states that she had had chronic left shoulder pain, but has significantly worsened since 2:00 p.m. yesterday. No relief with a couple of tablets of ibuprofen. Reports no routine primary care. She is not on any blood pressure medication. She reports both biological parents and even her daughter from congestive heart failure complication. She apparently had had CT angio of the chest and pelvis was performed in 2013. He has no routine primary medical care that she is aware of. She has hypertension, but takes no medication for it. Denies any cocaine, alcohol or methamphetamine abuse. She was extensively investigated in the Emergency Room and had an EKG, which showed that she was in sinus rhythm at 74 beats per minute, no axis deviation, prolonged QT interval of 504. Diffuse T-wave inversion in lead II, aVF, III, V2 and V6, but no ST segment elevation or ST depression. No prior EKGs for comparison. Her CT angiography of the chest, abdomen and pelvis with intravenous contrast showed no evidence of aortic dissection, alternative acute thoracic or abdominal or pelvic finding, common bile duct and pancreatic duct dilatation this can be seen with reservoir effect, status post cholecystectomy. MRCP can be performed if there is concern for occult obstructing etiology, chronic diverticulosis, left nephrolithiasis, prominent mediastinal hilar lymphadenopathy, likely physiological reactive and study. Her first set of cardiac enzymes showed troponin to be less than 0.017. Urinalysis was essentially unremarkable and toxic screen was positive for opiates, cannabinoids. The patient was admitted to do 2 more sets of cardiac enzyme, check her fasting lipid profile and to consult the cardiology team. PAST MEDICAL HISTORY: Significant for tobacco dependence and generalized osteoarthritis. PAST SURGICAL HISTORY: Significant for 2 hernia repairs 1 periumbilical and right inguinal hernia repair. She has cholecystectomy and total abdominal hysterectomy. ALLERGIES: SHE IS ALLERGIC TO PENICILLIN AND TRAMADOL. MEDICATIONS: She is currently on no medication except baby aspirin and Flexeril that she took from her brother. FAMILY HISTORY: She has 5 sisters and 2 brothers. One sister at age of 59. Mother at age of 76 and her daughter at age of 41 because of congestive heart failure. Her father at the age of 80 because of prostate cancer. SOCIAL HISTORY: She is . She has 1 son. She continued to smoke half a pack a day. She drinks alcohol occasionally. She continued to smoke marijuana, but denied any cocaine, heroin or methamphetamine. REVIEW OF SYSTEMS: As per history of present illness. PHYSICAL EXAMINATION: GENERAL: On arrival to the Emergency Room, the patient looked well and was clearly in no apparent respiratory distress. There was no pallor, jaundice, cyanosis or thyromegaly. No jugular venous distension. No lower limb edema. VITAL SIGNS: Her heart rate was 74, blood pressure was 185/102, temperature was 97.7, respiratory rate was 24, and oxygen saturation was 100% on room air. HEAD, EYES, EARS, NOSE AND THROAT: Showed normocephalic, atraumatic. NECK: Supple. HEART: Showed normal first and second heart sounds. No gallop or murmur. CHEST: Clear to auscultation. No crepitation or rhonchi. ABDOMEN: Distended, soft, nontender. No guarding or rigidity. No organomegaly. All hernial orifice intact. Bowel sounds normal. NEUROLOGIC: She was awake, alert, responding appropriately. All cranial nerves intact. EXTREMITIES: She moves extremities without difficulty. LABORATORY DATA: Her lab work on admission showed a white cell count 5600, hemoglobin 14, hematocrit 42, MCV 95, and platelet count 258,000. Her chemistry showed a serum sodium 144, potassium 3.6, chloride 106, bicarbonate 28, anion gap of 10, BUN 9, creatinine 0.6, estimated GFR was 123 mL per minute. Her glucose was 136, calcium was 8.9, phosphorus 3.6, and magnesium was 2. Total bilirubin, AST, ALT, alkaline phosphatase were normal. Her beta natriuretic peptide was 1216. Total protein was 7.6 and albumin 3.9. Her first set of cardiac enzymes showed troponin to be less than 0.017. Her urinalysis showed the urine was straw colored, clear with a pH of 6.5, specific gravity of 1.010. The urine was negative for protein, glucose, ketones. There was trace of blood, negative for nitrite and bilirubin, negative for leukocyte esterase. There are occasional rbc's, occasional wbc's, and no bacteria. Her urine toxic screen was positive for opiates and cannabinoids, but was negative for methadone, barbiturates, phencyclidine, methamphetamine, amphetamine, benzodiazepine and cocaine and alcohol. ASSESSMENT AND PLAN: In summary, this is a 60-year-old -Maltese female patient with a very strong family history of coronary artery disease. She also has hypertension that she is not treating and she is a heavy smoker, who presented with pain, mostly in the left shoulder and left scapula. She denied any chest pain. Denied any nausea or vomiting. Denied any shortness of breath. Denied any orthopnea or paroxysmal nocturnal dyspnea. Her EKG showed she has diffuse T-wave inversion; however, CT scan of the chest, abdomen and pelvis showed no evidence of aortic dissection, acute thoracic, abdominal, or pelvic finding. My plan is to do 2 more sets of cardiac enzymes, check her fasting lipid profile. It is atypical and in fact her pain is really more with a muscle relaxant than with even narcotics and is probably musculoskeletal and she probably will benefit from MRI of her cervical and thoracic spine eventually once she is ruled out for myocardial infarction. We did consult the coagulating operator to evaluate her. I did start her already on Flexeril. I will add also some metoprolol to see if that will help. REBECCA LING MD DR: JOSIAH/yris JOB#: [id number] / [id number]
[2020-10-19 19:50] VITALS: BP 160/93
[2020-10-19] MEDS: ACETAMINOPHEN 325 MG TABLET PO PRN (21:57)
[2020-10-19] MEDS: METOPROLOL TART IMMED RELEASE 25 MG TABLET. PO SCH (21:57)
[2020-10-19 23:41] VITALS: BP 152/88
[2020-10-20 05:49] VITALS: BP 162/96
--- NOTE | 2020-10-20 06:39 | NUR ---
Pt c/o headache last night; improved with Tylenol. Pt slept soundly through the night and has not requested pain medication since. Pt denies chest pain; she states her ongoing pain is in her left shoulder. Will continue to monitor.
[2020-10-20 08:35] LABS: C REACTIVE PROTEIN 1.5 mg/L (0-3.3); CREATININE 0.5 mg/dL (0.6-1.0); GFR 151.8; POTASSIUM 3.5 mmol/L (3.5-5.1)
[2020-10-20] MEDS: CYCLOBENZAPRINE 10 MG TABLET. PO PRN (09:13)
[2020-10-20] MEDS: METOPROLOL TART IMMED RELEASE 25 MG TABLET. PO SCH (09:13)
[2020-10-20] MEDS: ACETAMINOPHEN 325 MG TABLET PO PRN (11:20)
[2020-10-20 11:23] VITALS: BP 165/85
[2020-10-20 14:23] VITALS: BP 151/88
[2020-10-20] MEDS ORDERED: LISI10TA16 PO (14:37)
[2020-10-20] MEDS ORDERED: SIMV10TA15 PO (14:37)
[2020-10-20] MEDS ORDERED: CYCL-331 PO (14:37)
[2020-10-20] MEDS ORDERED: METO25TA4 PO (14:37)
[2020-10-20] MEDS ORDERED: ASPI-889 PO (14:37)
--- NOTE | 2020-10-20 15:10 | NUR ---
Discharge Note: BRITTNEY SMITH [address] Discharge instructions and discharge home medications reviewed with Patient and a copy given. All questions have been answered and understanding verbalized. The following instructions and handouts were given: Medication information packet. Discontinued lines and drains: Peripheral IV intact. Patient discharged to Home or Self Care by self via ambulation. All patient belonging sent home with patient.
--- NOTE | 2020-10-20 15:32 | DS ---
DATE OF DISCHARGE: 10/20/2020 HOSPITAL COURSE: The patient is a 60-year-old -Domin[place] male patient who came to the hospital complaining of pain mostly around her left shoulder and left scapula aggravated by movement. She was extensively investigated and in fact she has 3 sets of cardiac enzymes that ruled out myocardial infarction. She did have CT angio of the chest, abdomen and pelvis, which showed no evidence of aortic dissection, acute thoracic, abdominal, or pelvic finding. Her fasting lipid profile showed serum triglycerides 109, total cholesterol 219, LDL cholesterol 127, VLDL was 21, HDL 71, the ratio of 3. The patient was seen in consultation by the bog cutter who recommended starting her on metoprolol, lisinopril, and simvastatin and to follow with her [facility]. PHYSICAL EXAMINATION: GENERAL: When I examined her this afternoon, she looked well and was clearly in no apparent respiratory distress. There was no pallor, jaundice, cyanosis or thyromegaly. No jugular venous distention or limb edema. VITAL SIGNS: Her heart rate was 70, blood pressure was 151/88, temperature was 98.6, respiratory rate 20, and oxygen saturation was 94%. HEAD, EYES, EARS, NOSE AND THROAT: Showed normocephalic, atraumatic. NECK: Supple. HEART: Showed normal first and second heart sounds. No gallop or murmur. CHEST: Clear to auscultation. No crepitation or rhonchi. ABDOMEN: Distended, soft, nontender. NEUROLOGIC: She was awake, alert, responding appropriately. All cranial nerves intact. EXTREMITIES: She moves extremities without difficulty. She ambulates without assistance or assistive devices. LABORATORY DATA: Her lab work showed a white cell count 5600, hemoglobin 14, hematocrit 42, MCV 95, and platelet count 258,000 with normal manual differential. Serum sodium this morning was 141, potassium 3.5, chloride 106, bicarbonate 26, anion gap of 9, BUN 6, creatinine 0.5, estimated GFR was 151 mL per minute. Her glucose 121, calcium was 9. Her C-reactive protein was 1.5. She has 3 sets of cardiac enzymes that ruled out myocardial infarction. Serum triglycerides were 109. Total cholesterol was 219, LDL was 127, VLDL 21, HDL 71 and ratio was 3. DISCHARGE MEDICATIONS: The patient was discharged home to continue an aspirin enteric coated 81 mg once a day, cyclobenzaprine 10 mg 3 times a day as needed, lisinopril 10 mg once a day, metoprolol tartrate 25 mg twice a day, simvastatin 10 mg at bedtime. She is also on nitroglycerin 0.4 mg sublingually every 5 minutes x 3. FINAL DISCHARGE DIAGNOSES: Atypical chest pain, acute myocardial infarction was ruled out, hypertension, tobacco dependence. The patient was advised to quit smoking and was given prescription for metoprolol, lisinopril, simvastatin, and nitroglycerin. REBECCA LING MD DR: JOSIAH/yris JOB#: [id number] / [id number]
--- NOTE | 2020-10-21 08:31 | PDOC2 ---
CONSULT DOS: DATE: 10/20/20 TIME: 08:26 Reason for Consult: Chest pain Referring Physician: Jesus Chief Complaint Shoulder pain Source: Chart review, Patient Problem List Problems Medical Problems: (1) Atypical chest pain Status: Acute (2) Hypertension with goal of symptom management only Status: Acute History of Present Illness 60-year-old woman who presented to the hospital in the setting of left-sided shoulder pain. Initial concern in the ER was for a aortic dissection and this was ruled out. She was admitted for a cardiac rule out protocol. At baseline patient denies any exertional dyspnea, chest pain, orthopnea or PND. She reported this left-sided shoulder pain that is been ongoing over the last few days. She has pain with palpation of her left scapular area and pain upon raising her arm above her shoulder. She denies any syncope or palpitations. Since admission to the hospital she is not had any worsening of her pain and ambulation does not seem to make things worse but movement does increase her discomfort consistent with musculoskeletal etiology. Past Medical History Hypertension Dyslipidemia Tobacco abuse Family History Positive for coronary artery disease Social History Denies any alcohol or illicit drug use. Current Medications Current Medications Diazepam (Valium) 5 mg 1X ONCE PO ; Start 10/19/20 at 10:45; Stop 10/19/20 at 10:54; Status DC Ketorolac Tromethamine (Toradol 15mg Vial) 15 mg 1X ONCE IM ; Start 10/19/20 at 11:00; Stop 10/19/20 at 10:54; Status DC Ketorolac Tromethamine (Toradol 15mg Vial) 15 mg STK-MED ONCE .ROUTE ; Start 10/19/20 at 10:43; Stop 10/19/20 at 10:43; Status DC Hydromorphone HCl (Dilaudid) 1 mg 1X ONCE IVP Last administered on 10/19/20at 10:54; Start 10/19/20 at 11:00; Stop 10/19/20 at 10:57; Status DC Sodium Chloride 1,000 ml @ 1,000 mls/hr 1X ONCE IV Last administered on 10/19/20at 11:06; Start 10/19/20 at 11:00; Stop 10/19/20 at 11:59; Status DC Ondansetron HCl (Zofran) 4 mg 1X ONCE IVP Last administered on 10/19/20at 11:45; Start 10/19/20 at 11:00; Stop 10/19/20 at 11:01; Status DC Iohexol (Omnipaque 350 Mg/ml) 100 ml 1X ONCE IV Last administered on 10/19/20at 11:01; Start 10/19/20 at 11:00; Stop 10/19/20 at 11:01; Status DC Hydromorphone HCl (Dilaudid) 1 mg 1X ONCE IVP Last administered on 10/19/20at 11:06; Start 10/19/20 at 11:00; Stop 10/19/20 at 11:01; Status DC Sodium Chloride 1,000 ml @ 1,000 mls/hr 1X ONCE IV ; Start 10/19/20 at 11:00; Stop 10/19/20 at 10:57; Status DC Nitroglycerin (Nitrostat) 0.4 mg PRN Q5MIN PRN SL CHEST PAIN Last administered on 10/19/20at 12:52; Start 10/19/20 at 12:00; Stop 10/20/20 at 15:14; Status DC Nitroglycerin (Nitrostat) 0.4 mg STK-MED ONCE SL ; Start 10/19/20 at 12:05; Stop 10/19/20 at 12:06; Status DC Acetaminophen (Tylenol) 650 mg PRN Q4HRS PRN PO FEVER > 100.3'F Last administered on 10/20/20at 11:20; Start 10/19/20 at 12:30; Stop 10/20/20 at 12:29; Status DC Magnesium Sulfate 100 ml @ 100 mls/hr 1X ONCE IV ; Start 10/19/20 at 13:00; Stop 10/19/20 at 17:49; Status DC Cyclobenzaprine HCl (Flexeril) 10 mg PRN Q6HRS PRN PO MUSCLE SPASMS Last administered on 10/20/20at 09:13; Start 10/19/20 at 17:45; Stop 10/20/20 at 15:14; Status DC Metoprolol Tartrate (Lopressor) 25 mg BID PO Last administered on 10/20/20at 09:13; Start 10/19/20 at 21:00; Stop 10/20/20 at 15:14; Status DC Active Scripts Active Aspirin Ec (Aspirin) 81 Mg Tablet.dr 1 Tab PO DAILY 30 Days Cyclobenzaprine Hcl 10 Mg Tablet 1 Tab PO TID 30 Days Simvastatin 10 Mg Tablet 1 Tab PO QHS 30 Days Lisinopril 10 Mg Tablet 1 Tab PO DAILY 30 Days Metoprolol Tartrate 25 Mg Tablet 1 Tab PO BID 30 Days Allergies: Coded Allergies: Penicillins (Verified Allergy, Unknown, 10/19/20) tramadol (Verified Allergy, Unknown, 10/19/20) Review of System Negative for 10 out of 14 systems reviewed unless otherwise mentioned above in HPI Physical Exam The patient appeared well nourished and normally developed. Head exam is unremarkable. No scleral icterus or corneal arcus noted. Neck is without jugular venous distension, thyromegaly, or carotid bruits. Carotid upstrokes are brisk bilaterally. Lungs are clear to auscultation and percussion. Cardiac exam reveals the PMI to be normally sized and situated. Rhythm is regular. First and second heart sounds normal. No murmurs, rubs or gallops. Abdominal exam reveals normal bowel sounds, no masses, no organomegaly and no aortic enlargement. Extremities are nonedematous and both femoral and pedal pulses are normal. Msk: No traumua Neuro: No focal deficits VITALS Vital Signs Date Time Temp Pulse Resp B/P (MAP) Pulse Ox O2 Delivery O2 Flow Rate FiO2 10/20/20 14:23 98.6 70 20 151/88 (109) 94 Room Air Labs Laboratory Tests Test 10/19/20 10:45 10/19/20 12:27 10/19/20 14:28 10/19/20 16:50 White Blood Count 5.6 x10^3/uL (4.0-11.0) Red Blood Count 4.49 x10^6/uL (3.50-5.40) Hemoglobin 14.2 g/dL (12.0-15.5) Hematocrit 42.8 % (36.0-47.0) Mean Corpuscular Volume 95 fL (79-100) Mean Corpuscular Hemoglobin 32 pg (25-35) Mean Corpuscular Hemoglobin Concent 33 g/dL (31-37) Red Cell Distribution Width 14.1 % (11.5-14.5) Platelet Count 258 x10^3/uL (140-400) Neutrophils (%) (Auto) 55 % (31-73) Lymphocytes (%) (Auto) 35 % (24-48) Monocytes (%) (Auto) 7 % (0-9) Eosinophils (%) (Auto) 2 % (0-3) Basophils (%) (Auto) 1 % (0-3) Neutrophils # (Auto) 3.1 x10^3uL (1.8-7.7) Lymphocytes # (Auto) 1.9 x10^3/uL (1.0-4.8) Monocytes # (Auto) 0.4 x10^3/uL (0.0-1.1) Eosinophils # (Auto) 0.1 x10^3/uL (0.0-0.7) Basophils # (Auto) 0.0 x10^3/uL (0.0-0.2) Sodium Level 144 mmol/L (136-145) Potassium Level 3.6 mmol/L (3.5-5.1) Chloride Level 106 mmol/L (98-107) Carbon Dioxide Level 28 mmol/L (21-32) Anion Gap 10 (6-14) Blood Urea Nitrogen 9 mg/dL (7-20) Creatinine 0.6 mg/dL (0.6-1.0) Estimated GFR (Cockcroft-Gault) 123.0 BUN/Creatinine Ratio 15 (6-20) Glucose Level 136 mg/dL (70-99) Calcium Level 8.9 mg/dL (8.5-10.1) Phosphorus Level 3.6 mg/dL (2.6-4.7) Magnesium Level 2.0 mg/dL (1.8-2.4) Total Bilirubin 0.7 mg/dL (0.2-1.0) Aspartate Amino Transf (AST/SGOT) 17 U/L (15-37) Alanine Aminotransferase (ALT/SGPT) 27 U/L (14-59) Alkaline Phosphatase 79 U/L (46-116) Creatine Kinase 116 U/L (26-192) Troponin I Quantitative < 0.017 ng/mL (0-0.055) 0.019 ng/mL (0-0.055) 0.026 ng/mL (0-0.055) [id number]-Type Natriuretic Peptide 1216 pg/mL (0-124) Total Protein 7.6 g/dL (6.4-8.2) Albumin 3.9 g/dL (3.4-5.0) Albumin/Globulin Ratio 1.1 (1.0-1.7) Lipase 90 U/L (73-393) Urine Collection Type Unknown Urine Color Straw Urine Clarity Clear Urine pH 6.5 Urine Specific Ward 1.010 Urine Protein Neg (NEG-TRACE) Urine Glucose (UA) Neg mg/dL (NEG) Urine Ketones (Stick) Neg mg/dL (NEG) Urine Blood Trace (NEG) Urine Nitrite Neg (NEG) Urine Bilirubin Neg (NEG) Urine Urobilinogen Dipstick 0.2 mg/dL (0.2 mg/dL) Urine Leukocyte Esterase Neg (NEG) Urine RBC Occ /HPF (0-2) Urine WBC Occ /HPF (0-4) Urine Squamous Epithelial Cells Few /LPF Urine Bacteria 0 /HPF (0-FEW) Urine Mucus Slight /LPF Urine Opiates Screen Pos (NEG) Urine Methadone Screen Neg (NEG) Urine Barbiturates Neg (NEG) Urine Phencyclidine Screen Neg (NEG) Urine Amphetamine/Methamphetamine Neg (NEG) Urine Benzodiazepines Screen Neg (NEG) Urine Cocaine Screen Neg (NEG) Urine Cannabinoids Screen Pos (NEG) Urine Ethyl Alcohol Neg (NEG) Test 10/20/20 07:40 Sodium Level 141 mmol/L (136-145) Potassium Level 3.5 mmol/L (3.5-5.1) Chloride Level 106 mmol/L (98-107) Carbon Dioxide Level 26 mmol/L (21-32) Anion Gap 9 (6-14) Blood Urea Nitrogen 6 mg/dL (7-20) Creatinine 0.5 mg/dL (0.6-1.0) Estimated GFR (Cockcroft-Gault) 151.8 Glucose Level 121 mg/dL (70-99) Calcium Level 9.0 mg/dL (8.5-10.1) C-Reactive Protein 1.5 mg/L (0-3.3) Triglycerides Level 109 mg/dL (0-150) Cholesterol Level 219 mg/dL (0-200) LDL Cholesterol, Calculated 127 mg/dL (0-100) VLDL Cholesterol, Calculated 21 mg/dL (0-40) Non-HDL Cholesterol Calculated 148 mg/dL (0-129) HDL Cholesterol 71 mg/dL (40-60) Cholesterol/HDL Ratio 3.[address] of the chest reviewed EKG reviewed. Assessment/Plan 1. Noncardiac chest pain 2. Hypertension 3. Tobacco abuse 4. Abnormal EKG without acute changes Plan: 1. At this present time the patient's shoulder pain does not seem to be consistent with any cardiac etiology. Nonetheless, she has multiple risk factors given her postmenopausal state, history of tobacco abuse and significant family history and with her mildly abnormal EKG with diffuse T wave inversions and coronary atherosclerosis noted on CT of the chest it would be appropriate to treat her for presumable underlying coronary artery disease. Given that she does not have any significant anginal symptoms, lack of any cardiac enzyme elevation and no clear ST elevations on the EKG it would be reasonable to treat her with medical therapy. We will plan for initiation of aspirin, metoprolol, statin and low-dose JORGE inhibitor therapy. She will be given nitroglycerin for use as needed in the event of any cardiac angina. Flexeril has significantly improved her left shoulder pain and this will be considered by the primary care team for discharge. She was advised to follow[place] [facility] [place] further assessment with ischemic testing including a echocardiogram and stress test. She understands to return to the ER for any cardiovascular symptoms. Late entry for 10/20/2020 TANJA GILMORE MD Oct 21, 2020 08:31
== END 2020-10-20 15:13 | disposition home or self-care (01) | DRG 313 ==
LOC: ER 10:27 → 1 SOUTH 12:29
PROVIDERS: ADMIT Internal Medicine; ATTEND Internal Medicine
DX: R07.89 Other chest pain (principal); E78.5 Hyperlipidemia, unspecified; F17.210 Nicotine dependence, cigarettes, uncomplicated; G89.29 Other chronic pain; I10 Essential (primary) hypertension; K57.30 Diverticulosis of large intestine without perforation or abscess without bleeding; K86.89 Other specified diseases of pancreas; M15.9 Polyosteoarthritis, unspecified; N20.0 Calculus of kidney; Z82.49 Family history of ischemic heart disease and other diseases of the circulatory system; Z90.710 Acquired absence of both cervix and uterus
CPT/HCPCS: 36415; 71275; 74174; 80048; 80053; 80061; 80307; 81001; 82550; 83690; 83735; 83880; 84100; 84484; 85025; 86140; 93005; 96361; 96374; 96375; 96376; J1170; J2405; Q9967; 99285-25; J7030

== ENCOUNTER 2020-12-31 17:34 | Emergency (ER) | payer SELFPAY ==
[~2020-12-31] VITALS: Ht 165.1 cm; Wt 82.1 kg
[~2020-12-31 17:34] MED LIST changes: +ASPI-889 PO; +CYCL-331 PO; +LISI10TA16 PO; +METO25TA4 PO; +SIMV10TA15 PO
[2020-12-31 17:36] VITALS: BP 141/89
--- NOTE | 2020-12-31 18:01 | PHYS DOC ---
Past History Past Medical History: Arthritis, Bronchitis, Diverticulitis, Hypertension Past Surgical History: Cholecystectomy, Hysterectomy Additional Past Surgical Histo: hernia sx Smoking: Cigarettes, Less than 1pk/day Alcohol Use: Occasionally Drug Use: None General Adult EDM: Chief Complaint: LOWER EXTREMITY SWELLING HPI: HPI: "There was this yellow jacket.. it was by my dog.. but I was trying to hit it with a broom... I think it bit or stung my Rt. Leg...".." My family said I need to get come in and make sure I do not have a DVT..." Patient is a 60 year old female who presents with above hx and lower leg edema. Patient has approximately 12 x 12 cm area with a central area appears to be a sting site. Patient has also varicosities in the lower legs. . Does have tenderness and warmth at the site. History it is suspect that she did receive a ting from a wasp or yellow jacket type insect. No history of previous allergic reaction to bee stings or wasp stings. Has had some recent bronchitis. Patient did have some coughing and wheezing. Patient does smoke tobacco. No recent travel. No specific ill contacts. Does have a history of hypertension, bronchitis,. Recent evaluation on 10/19/2020 for chest pain. Was evaluated at that time with 3 sets of cardiac enzymes and CT angio chest. Patient's diagnosis at that time was felt to be atypical chest pain. Acute CO was ruled out. Patient encouraged to stop smoking and take hypertensive meds as directed. Patient at that time to follow-up but [facility].. The patient currently somewhat inpatient and requesting immediate discharge. Patient did agree to a ultrasound of right lower leg to evaluate for DVT which showed no confirmed finding of DVT. Location of the edema and collection of fluid not consistent with a DVT. Patient does have a history of hypertension. Patient does continue to smoke tobacco. Review of Systems: Review of Systems: Constitutional: Denies fever or chills Eyes: Denies change in visual acuity HENT: Denies nasal congestion or sore throat Respiratory: Denies cough or shortness of breath Cardiovascular: Denies chest pain or edema GI: Denies abdominal pain, nausea, vomiting, bloody stools or diarrhea : Denies dysuria Musculoskeletal: Complains of right lower leg pain and swelling Integument: Complains of insect sting Neurologic: Denies headache, focal weakness or sensory changes Endocrine: Denies polyuria or polydipsia Lymphatic: Denies swollen glands Psychiatric: Denies depression or anxiety Family History: Family History: Noncontributory Current Medications: Current Meds: See nursing for home meds Allergies: Allergies: Allergies Coded Allergies Type Severity Reaction Last Updated Verified Penicillins Allergy Unknown 10/19/20 Yes tramadol Allergy Unknown 10/19/20 Yes Physical Exam: PE: Constitutional: , no acute distress, non-toxic appearance. [] HENT: Normocephalic, atraumatic, bilateral external ears normal, oropharynx moist, no oral exudates, nose normal. [] Eyes: PERRLA, EOMI, conjunctiva normal, no discharge. [] Neck: Normal range of motion, no tenderness, supple, no stridor. [] Cardiovascular:Heart rate regular rhythm, no murmur [] Lungs & Thorax: Bilateral breath sounds to apex with scattered wheezes on auscultation [] Abdomen: Bowel sounds normal, soft, no tenderness, no masses, no pulsatile masses. Old surgery scars. Skin: Warm, dry, no erythema, no rash. [] Back: No tenderness, no CVA tenderness. [] Extremities: Right lower leg tenderness, no cyanosis, no clubbing, ROM intact, right lower leg localized area of edema in the site consistent with wasp sting. Neurologic: Alert and oriented X 3, normal motor function, normal sensory function, no focal deficits noted. [] Psychologic: Affect anxious, very impatient, judgement normal, mood normal. [] EKG: EKG: My interpretation EKG shows a sinus rhythm 79 bpm. Left axis. No findings of acute STEMI of contralateral changes. Similar to previous EKGs on file. [] Radiology/Procedures: Radiology/Procedures: [address] [address] IMAGING REPORT Signed PATIENT: BRITTNEY SMITH ACCOUNT: [id number] : 1960 LOCATION: ER AGE: 60 SEX: F EXAM STATUS: REG ER ORD. PHYSICIAN: GOLDEN MILLER MD REASON: LLE SWELLING PROCEDURE: PORTABLE CHEST 1V XR CHEST 1V History: Reason: LLE SWELLING / Spl. Instructions: / History: Comparison: October 22, 2011 Findings: No consolidation or pleural effusion. Normal heart size. No pneumothorax. Impression: 1. No acute cardiopulmonary process. Electronically signed by: Sahil Alvarado DO (12/31/2020 6:54 PM) [facility] DICTATED AND SIGNED BY: SAHIL ALVARADO DO DATE: 12/31/201852 CC: GOLDEN MILLER MD; PCP,NO ~MTH0 0 [][address] [address] IMAGING REPORT Signed PATIENT: BRITTNEY SMITH ACCOUNT: [id number] : 1960 LOCATION: ER AGE: 60 SEX: F EXAM STATUS: REG ER ORD. PHYSICIAN: GOLDEN MILLER MD REASON: edema, stung by a bee RT lateral mid calf PROCEDURE: VENOUS LOWER EXTREMITY RIGHT US DPLX VENOUS EXTREMITY LOWER RT History: Reason: edema, stung by a bee RT lateral mid calf / Spl. Instructions: / History: Comparison: None. Discussion: Multiple longitudinal and transverse high resolution real-time images of the venous system of right lower extremity were obtained with color and Doppler sampling. The common femoral, superficial femoral, popliteal and proximal calf veins are all patent and demonstrate normal flow and compressibility. Normal respiratory phasicity and augmentation is present. Thrombosed superficial varicose vein within the right lateral calf. Right lateral mid calf intramuscular ill-defined focus. Impression: 1. Superficial vein thrombosis within the right lateral calf varicose vein. 2. No deep vein thrombosis. 3. Ill-defined focus within the right lateral mid calf musculature, may represent muscular strain or hematoma. If persistent clinical concern, recommend follow-up. Electronically signed by: Sahil Alvarado DO (12/31/2020 7:53 PM) [facility] DI[facility] AND SIGNED BY: SAHIL ALVARADO DO DATE: 12/31/201949 CC: GOLDEN MILLER MD; PCP,NO ~MTH0 0 Heart Score: C/O Chest Pain: No HEART Score for Chest Pain: HEART Score for Chest Pain Response (Comments) Value History Slighlty/Non-Suspicious 0 ECG Nonspecific Repolarizatio 1 Age >45 - < 65 1 Risk Factors 1 or 2 Risk Factors 1 Troponin < Normal Limit 0 Total 3 Risk Factors: Risk Factors: DM, Current or recent (<one month) smoker, HTN, HLP, family history of CAD, obesity. Risk Scores: Score 0 - 3: 2.5% MACE over next 6 weeks - Discharge Home Score 4 - 6: 20.3% MACE over next 6 weeks - Admit for Clinical Observation Score 7 - 10: 72.7% MACE over next 6 weeks - Early Invasive Strategies Course & Med Decision Making: Course & Med Decision Making Pertinent Labs and Imaging studies reviewed. (See chart for details) Patient use ice packs 4 times a day to area of sting or swelling on right leg. After 3 days may advance to moist heat. Patient take a daily aspirin. Patient follow-up primary care. Patient you Benadryl 50 mg with 4 times a day for itching and swelling. Take Pepcid 20 mg twice a day. Patient did receive a Depo injection Decadron. Patient use MDI 2 puffs 4 times a day. Keep follow-up with [facility]. Return if any concerns. Monitor site for infection. Use compresses of salt water and Epson salts 4 times a day. Massage area Polysporin after application of compresses. Return if any concerns. Impression: 1. Wasp sting 2. Mild allergic reaction-localized primarily to the site of sting 3. Varicosities 4. Tobacco use 5. Hypertension [] Dragon Disclaimer: Dragon Disclaimer: This electronic medical record was generated, in whole or in part, using a voice recognition dictation system. Departure Departure: Referrals: PCP,NO (PCP) Dragon Disclaimer This chart was dictated in whole or in part using Voice Recognition software in a busy, high-work load, and often noisy Emergency Department environment. It may contain unintended and wholly unrecognized errors or omissions. GOLDEN MILLER MD December 31, 2020 18:01
--- NOTE | 2020-12-31 18:39 | EKG ---
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
[2020-12-31 18:52] LABS: CALCIUM 8.7 mg/dL (8.5-10.1); CREATININE 0.9 mg/dL (0.6-1.0); POTASSIUM 3.5 mmol/L (3.5-5.1)
[2020-12-31 18:53] LABS: BASO # 0.1 x10^3/uL (0.0-0.2); BASO % 1 % (0-3); EOS # 0.1 x10^3/uL (0.0-0.7); EOS % 2 % (0-3); HEMATOCRIT 38.3 % (36.0-47.0); HEMOGLOBIN 12.8 g/dL (12.0-15.5); LYMPH # 2.6 x10^3/uL (1.0-4.8); LYMPH % 45 % (24-48); MEAN CORPUSCULAR HEMOGLOBIN 32 pg (25-35); MEAN CORPUSCULAR HGB CONC 34 g/dL (31-37); MEAN CORPUSCULAR VOLUME 94 fL (79-100); MONO # 0.3 x10^3/uL (0.0-1.1); MONO % 6 % (0-9); NEUT # 2.8 x10^3uL (1.8-7.7); NEUT % 47 % (31-73); PLATELET COUNT 257 x10^3/uL (140-400); RED BLOOD COUNT 4.07 x10^6/uL (3.50-5.40); RED CELL DISTRIBUTION WIDTH 13.7 % (11.5-14.5)
--- NOTE | 2020-12-31 18:56 | RAD ---
XR CHEST 1V History: Reason: LLE SWELLING / Spl. Instructions: / History: Comparison: October 22, 2011 Findings: No consolidation or pleural effusion. Normal heart size. No pneumothorax. Impression: 1. No acute cardiopulmonary process. Electronically signed by: Sahil Alvarado DO (12/31/2020 6:54 PM) [facility]
[2020-12-31] MEDS ORDERED: diphenhydrAMINE HCL 25 MG CAPSULE PO ONE (19:00)
[2020-12-31] MEDS ORDERED: methylPREDNISolone ACETATE 40 MG/ML VIAL. IM ONE (19:00)
[2020-12-31] MEDS ORDERED: ALBUTEROL SULFATE 8GM INHALER. INH ONE (19:00)
[2020-12-31] MEDS ORDERED: FAMOTIDINE 20 MG TABLET PO ONE (19:00)
[2020-12-31 19:05] LABS: ALBUMIN 3.8 g/dL (3.4-5.0); DIRECT BILIRUBIN 0.1 mg/dL (0.0-0.2); MAGNESIUM 2.3 mg/dL (1.8-2.4); TOTAL BILIRUBIN 0.6 mg/dL (0.2-1.0); TOTAL PROTEIN 7.2 g/dL (6.4-8.2)
--- NOTE | 2020-12-31 19:56 | RAD ---
US DPLX VENOUS EXTREMITY LOWER RT History: Reason: edema, stung by a bee RT lateral mid calf / Spl. Instructions: / History: Comparison: None. Discussion: Multiple longitudinal and transverse high resolution real-time images of the venous system of right l ower extremity were obtained with color and Doppler sampling. The common femoral, superficial femoral , popliteal and proximal calf veins are all patent and demonstrate normal flow and compressibility. N ormal respiratory phasicity and augmentation is present. Thrombosed superficial varicose vein within the right lateral calf. Right lateral mid calf intramuscu lar ill-defined focus. Impression: 1. Superficial vein thrombosis within the right lateral calf varicose vein. 2. No deep vein thrombosis. 3. Ill-defined focus within the right lateral mid calf musculature, may represent muscular strain or hematoma. If persistent clinical concern, recommend follow-up. Electronically signed by: Sahil Alvarado DO (12/31/2020 7:53 PM) [facility]
== END 2020-12-31 19:33 | disposition left against medical advice (07) ==
LOC: ER 17:34
DX: T63.461A Toxic effect of venom of wasps, accidental (unintentional), initial encounter (principal); T78.40XA Allergy, unspecified, initial encounter; I83.93 Asymptomatic varicose veins of bilateral lower extremities; I10 Essential (primary) hypertension; F17.210 Nicotine dependence, cigarettes, uncomplicated; M19.90 Unspecified osteoarthritis, unspecified site; Z88.0 Allergy status to penicillin; Z88.6 Allergy status to analgesic agent; X58.XXXA Exposure to other specified factors, initial encounter; Y92.89 Other specified places as the place of occurrence of the external cause
CPT/HCPCS: 36415; 71045; 80048; 80076; 82550; 83690; 83735; 83880; 84443; 84484; 85025; 85379; 85730; 93005; 93971; 94640; 96372; 99285; J1030; Q0163; 94664

== ENCOUNTER 2021-03-23 11:46 | Emergency (ER) | payer SELFPAY ==
[~2021-03-23] VITALS: Ht 162.6 cm; Wt 82.5 kg
[2021-03-23] MEDS ORDERED: CYCLOBENZAPRINE 10 MG TABLET. PO ONE (12:15)
--- NOTE | 2021-03-23 12:19 | PHYS DOC ---
Past History Past Medical History: Arthritis, Bronchitis, Diverticulitis, Hypertension Past Surgical History: Cholecystectomy, Hysterectomy Additional Past Surgical Histo: hernia sx Smoking: Cigarettes, Less than 1pk/day Alcohol Use: None Drug Use: None General Adult EDM: Chief Complaint: SHOULDER INJURY HPI: HPI: 60-year-old female presents with right shoulder blade pain. He tells me that she has been having intermittent episodes of pain in the shoulder that starts at her shoulder blade on the right and radiates up to the top of her shoulder. It seems to start from just normal movements with her shoulder. She denies any falls or trauma. She denies any overuse. No history of neck problems or injury. She denies numbness, tingling, or altered sensation. Flexeril has helped a lot in the past. She is out of this medication. Review of Systems: Review of Systems: Constitutional: Denies fever or chills Eyes: Denies change in visual acuity HENT: Denies nasal congestion or sore throat Respiratory: Denies cough or shortness of breath Cardiovascular: Denies chest pain or edema GI: Denies abdominal pain, nausea, vomiting, bloody stools or diarrhea : Denies dysuria Musculoskeletal: Right shoulder pain Integument: Denies rash Neurologic: Denies headache, focal weakness or sensory changes Endocrine: Denies polyuria or polydipsia Lymphatic: Denies swollen glands Psychiatric: Denies depression or anxiety Current Medications: Current Meds: Current Medications Medications (Trade) Dose Ordered Sig/Ld Start Time Stop Time Status Last Admin Dose Admin Cyclobenzaprine HCl (Flexeril) 10 mg 1X ONCE 03/23/21 12:15 03/23/21 12:16 UNV Allergies: Allergies: Allergies Coded Allergies Type Severity Reaction Last Updated Verified Penicillins Allergy Unknown 12/31/20 Yes tramadol Allergy Unknown 12/31/20 Yes Physical Exam: PE: Constitutional: Well developed, well nourished, no acute distress, non-toxic appearance. [] HENT: Normocephalic, atraumatic, bilateral external ears normal, oropharynx moist, no oral exudates, nose normal. [] Eyes: PERRLA, EOMI, conjunctiva normal, no discharge. [] Neck: Normal range of motion, no tenderness, supple, no stridor. [] Cardiovascular: Heart rate regular rhythm, no murmur [] Lungs & Thorax: Bilateral breath sounds clear to auscultation [] Abdomen: Bowel sounds normal, soft, no tenderness, no masses, no pulsatile masses. [] Skin: Warm, dry, no erythema, no rash. [] Back: No tenderness, no CVA tenderness. [] Extremities: No tenderness, no cyanosis, no clubbing, ROM intact, no edema. No obvious deformity or limitation of the right shoulder. Tenderness along the m edial shoulder blade and supraspinatus. [] Neurologic: Alert and oriented X 3, normal motor function, normal sensory function, no focal deficits noted. [] Psychologic: Affect normal, judgement normal, mood normal. [] EKG: EKG: [] Radiology/Procedures: Radiology/Procedures: [] Heart Score: C/O Chest Pain: N/A Risk Factors: Risk Factors: DM, Current or recent (<one month) smoker, HTN, HLP, family history of CAD, obesity. Risk Scores: Score 0 - 3: 2.5% MACE over next 6 weeks - Discharge Home Score 4 - 6: 20.3% MACE over next 6 weeks - Admit for Clinical Observation Score 7 - 10: 72.7% MACE over next 6 weeks - Early Invasive Strategies Course & Med Decision Making: Course & Med Decision Making Pertinent Labs and Imaging studies reviewed. (See chart for details) Am not sure what is causing the patient's discomfort. I suspect she has a pinched muscle or nerve that accept. I will give her Flexeril in the ED and a prescription for the same. [] Dragon Disclaimer: Dragon Disclaimer: This electronic medical record was generated, in whole or in part, using a voice recognition dictation system. Departure Departure: Impression: Primary Impression: Right shoulder injury Qualified Codes: S49.91XA - Unspecified injury of right shoulder and upper arm, initial encounter Disposition: HOME / SELF CARE / HOMELESS Condition: STABLE Referrals: PCP,NO (PCP) Patient Instructions: Shoulder Pain, [id number] Scripts Cyclobenzaprine Hcl (CYCLOBENZAPRINE HCL) 10 Mg Tablet 1 TAB PO TID PRN for MUSCLE SPASMS, #30 TAB Prov: RODNEY MARTINEZ DO 03/23/21 RODNEY MARTINEZ DO Mar 23, 2021 12:19
[2021-03-23] MEDS ORDERED: CYCL-331 PO (12:40)
[2021-03-23 12:43] VITALS: BP 135/86
== END 2021-03-23 12:43 | disposition home or self-care (01) ==
LOC: ER 11:46
DX: S49.91XA Unspecified injury of right shoulder and upper arm, initial encounter (principal); M19.90 Unspecified osteoarthritis, unspecified site; I10 Essential (primary) hypertension; F17.210 Nicotine dependence, cigarettes, uncomplicated; Z88.0 Allergy status to penicillin; Z88.6 Allergy status to analgesic agent; X50.9XXA Other and unspecified overexertion or strenuous movements or postures, initial encounter; Y93.89 Activity, other specified; Y92.89 Other specified places as the place of occurrence of the external cause; Y99.8 Other external cause status
CPT/HCPCS: 99283

== ENCOUNTER 2021-07-12 14:44 | Emergency (ER) | payer SELFPAY ==
[~2021-07-12] VITALS: Ht 162.6 cm; Wt 82.5 kg
[~2021-07-12 14:44] MED LIST changes: -CYCL-331 PO; +CYCL10TA19 PO; -LEVO500T8 PO; +LEVO500T9 PO
[2021-07-12 15:21] VITALS: BP 145/90
--- NOTE | 2021-07-12 17:12 | PHYS DOC ---
Past History Past Medical History: Arthritis, Bronchitis, Diverticulitis, Hypertension (MARLENY DUGGAN APRN) Past Surgical History: Cholecystectomy, Hysterectomy, Other Additional Past Surgical Histo: hernia sx (MARLENY DUGGAN APRN) Smoking: Cigarettes, Less than 1pk/day Alcohol Use: None Drug Use: None (MARLENY DUGGAN APRN) Adult General Chief Complaint Chief Complaint: BACK PAIN - NO INJURY HPI HPI Patient is a 50-year-old female presents emergency department complaining of right-sided neck pain that radiates to her right trapezius area, patient reports is been happening for the past 5 years, patient reports she has exacerbations of this pain once or twice a year and requires Flexeril and ibuprofen for pain relief. Patient reports she does not have any prescriptions for this, is requesting a prescription for both ibuprofen and Flexeril. Patient denies recent neck trauma or injury. Patient reports this is similar onset of her paresthesias related to an old chronic neck pain injury. (MARLENY DUGGAN APRN) Review of Systems Review of Systems 14 body systems of review of systems have been reviewed. See HPI for pertinent positives and negative responses, otherwise all other systems are negative, nonpertinent or noncontributory. Constitutional: Negative except as outlined in HPI above. Skin: Negative except as outlined in HPI above. Eyes: Negative except as outlined in HPI above. HENT: Negative except as outlined in HPI above. Respiratory: Negative except as outlined in HPI above. Cardiovascular: Negative except as outlined in HPI above. GI: Negative except as outlined in HPI above. : Negative except as outlined in HPI above. Musculoskeletal: Negative except as outlined in HPI above. Integument: Negative except as outlined in HPI above. Neurologic: Negative except as outlined in HPI above. Endocrine: Negative except as outlined in HPI above. Lymphatic: Negative except as outlined in HPI above. Psychiatric: Negative except as outlined in HPI above. (MARLENY DUGGAN APRN) Allergies Allergies Allergies Coded Allergies Type Severity Reaction Last Updated Verified Penicillins Allergy Unknown 07/12/21 Yes tramadol Allergy Unknown 07/12/21 Yes (MARLENY DUGGAN APRN) Physical Exam Physical Exam Constitutional: Well developed, well nourished, no acute distress, non-toxic appearance. 60-year-old female in no apparent distress. HENT: Normocephalic, atraumatic. Eyes: Conjunctiva normal, no discharge. Neck: Normal range of motion, no stridor. Pain to the muscular structures of the right side of neck into trapezius area to palpation, no paresthesias appreciated distally. Cardiovascular: No cyanosis appreciated, distal cap refill less than 2 seconds. Lungs & Thorax: Patient is in no respiratory distress, no audible adventitious lung sounds appreciated. Abdomen: Nontender, no abnormalities noted. Skin: Warm, dry, no erythema, no rash. Back: No tenderness, no deformities. Extremities: No tenderness, no cyanosis, no clubbing, ROM intact, no edema. Distal cap refill less than 2 seconds of bilateral upper extremities, 2+ radial pulses bilaterally. 5 out of 5 asphalt paver strength bilaterally. Neurologic: Alert and oriented X 3, normal motor function, normal sensory function, no focal deficits noted. Psychologic: Affect normal, judgement normal, mood normal. (MARLENY DUGGAN APRN) Current Patient Data Vital Signs Vital Signs Date Time Temp Pulse Resp B/P (MAP) Pulse Ox O2 Delivery O2 Flow Rate FiO2 07/12/21 15:21 97.8 88 16 145/90 (108) 95 (MARLENY DUGGAN APRN) EKG EKG [] (MARLENY DUGGAN APRN) Radiology/Procedures Radiology/Procedures [] (MARLENY DUGGAN APRN) Heart Score C/O Chest Pain: No Risk Factors: Risk Factors: DM, Current or recent (<one month) smoker, HTN, HLP, family history of CAD, obesity. Risk Scores: Risk Factors: DM, Current or recent (<one month) smoker, HTN, HLP, family history of CAD, obesity. (MARLENY DUGGAN APRN) Course & Med Decision Making Course & Med Decision Making Pertinent Labs and Imaging studies reviewed. (See chart for details) 60-year-old female, vital signs reviewed, presents emergency department concerning medication refill. Physical examination consistent with cervical spinal radiculopathy, otherwise negative exam. Will prescribe Flexeril and ibuprofen. Discussed with patient strict follow-up with primary care provider soon for ongoing pain management, return ER precautions or concerns. Discussed with the patient all findings and diagnostic testing as well as the need to follow-up with their primary care provider for further evaluation and treatment or return to the ED if any new or worsening symptoms. Strict return precautions were also discussed at length, the patient voiced understanding and agreement with the discharge planning. The patient was nontoxic in appearance, in no apparent distress, and hemodynamically stable at the time of disposition. (MARLENY DUGGAN APRN) Course & Med Decision Making I was the Attending physician on the above date of service of this patient. This patient was evaluated, examined, treated, and dispositioned from the emergency department by the mid-level practitioner. Although I was working at the time , no assistance was requested. Electronically signed, Samira Frausto DO (SAMIRA FRAUSTO DO) Simón Disclaimer Dragelizabet Disclaimer This electronic medical record was generated, in whole or in part, using a voice recognition dictation system. (MARLENY DUGGAN APRN) Departure Departure: Impression: Primary Impression: Encounter for medication refill Disposition: HOME / SELF CARE / HOMELESS Condition: GOOD Referrals: PCP,NO (PCP) Additional Instructions: You were seen here in the emergency department today for medication refill of Flexeril and ibuprofen to treat your ongoing chronic neck pain exacerbations. I am prescribing you a short regimen, please follow-up with your primary care provider for ongoing pain management. Return to the emergency department for worsening symptoms or other concerns. Thank you for visiting our Emergency Department. It was a pleasure taking care of you today in the emergency department and we appreciate you trusting us with your care. If any additional problems come up don't hesitate to return to visit us. Please follow up with your primary care provider so they can plan additional care if needed and know about the problem that you had. If symptoms worsen come back to the Emergency Department. Any concerning symptoms that start such as chest pain, shortness of air, weakness or numbness on one side of the body, running high fevers or any other concerning symptoms return to the ER. Scripts Ibuprofen (IBUPROFEN) 600 Mg Tablet 600 MG PO Q4-6HRS PRN for PAIN, #30 TAB 0 Refills Prov: MARLENY DUGGAN APRN 07/12/21 Cyclobenzaprine Hcl (CYCLOBENZAPRINE HCL) 10 Mg Tablet 1 TAB PO TID PRN PRN for PAIN, #15 TAB 0 Refills Prov: MARLENY DUGGAN APRN 07/12/21 MARLENY DUGGAN APRN Jul 12, 2021 17:12 SAMIRA FRAUSTO DO Jul 13, 2021 07:55
[2021-07-12] MEDS ORDERED: IBUPROFEN 600 MG TABLET. PO ONE (17:15)
[2021-07-12] MEDS ORDERED: CYCLOBENZAPRINE 10 MG TABLET. PO ONE (17:15)
[2021-07-12] MEDS ORDERED: CYCL10TA19 PO (17:17)
[2021-07-12] MEDS ORDERED: IBUP600T16 PO (17:17)
== END 2021-07-12 17:42 | disposition home or self-care (01) ==
LOC: ER 14:44
DX: Z76.0 Encounter for issue of repeat prescription (principal); M54.2 Cervicalgia; R20.2 Paresthesia of skin; M19.90 Unspecified osteoarthritis, unspecified site; I10 Essential (primary) hypertension; F17.210 Nicotine dependence, cigarettes, uncomplicated; Z88.0 Allergy status to penicillin; Z88.6 Allergy status to analgesic agent
CPT/HCPCS: 99283

== ENCOUNTER 2021-09-16 12:20 | Emergency (ER) | payer SELFPAY ==
[~2021-09-16] VITALS: Ht 162.6 cm; Wt 85.5 kg
[~2021-09-16 12:20] MED LIST changes: +IBUP600T16 PO
[2021-09-16] MEDS ORDERED: ORPHENADRINE CITRATE 60 MG/2 ML VIAL. IM ONE (12:45)
[2021-09-16] MEDS ORDERED: KETOROLAC 60 MG/2 ML VIAL. IM ONE (12:45)
[2021-09-16] MEDS ORDERED: ORPH-16 PO (12:50)
[2021-09-16] MEDS ORDERED: NAPR-514 PO (12:50)
--- NOTE | 2021-09-16 12:56 | PHYS DOC ---
Past History Past Medical History: Arthritis, Bronchitis, Diverticulitis, Hypertension Past Surgical History: Cholecystectomy, Hysterectomy, Other Additional Past Surgical Histo: hernia sx Smoking: Cigarettes, Less than 1pk/day Alcohol Use: None Drug Use: None General Adult EDM: Chief Complaint: SHOUDLER HPI: HPI: Patient is a 61 year old female who presents with left shoulder pain. Patient states the pain has been intermittent for period of over 6 months. The pain is sometimes in the cervical neck region, sometimes periscapular and other times in her shoulder radiating down her arm. Typically, she is treated with Toradol, which improves her symptoms. Patient has not been to see pain management or Ortho for further evaluation and long-term treatment. Patient denies any new injury/trauma. She has no other complaints. Review of Systems: Review of Systems: Constitutional: Denies fever, chills or generalized weakness Eyes: Denies change in visual acuity, visual field deficits or discharge HENT: Denies ear pain, nasal congestion or sore throat Respiratory: Denies cough or shortness of breath Cardiovascular: Denies chest pain, palpitations or edema GI: Denies abdominal pain, nausea, vomiting, bloody stools or diarrhea : Denies dysuria or hematuria Musculoskeletal: See HPI Integument: Denies rash or other skin lesion Neurologic: Denies headache, focal weakness or sensory changes Allergies: Allergies: Allergies Coded Allergies Type Severity Reaction Last Updated Verified Penicillins Allergy Unknown 07/12/21 Yes tramadol Allergy Unknown 07/12/21 Yes Physical Exam: PE: Constitutional: Well developed, well nourished, non-toxic appearance, tearful. HENT: Normocephalic, atraumatic, bilateral external ears normal, nose normal. Eyes: EOMI, conjunctiva normal, no discharge. Neck: Normal range of motion, right-sided spasm and tenderness over trapezius and paraspinal cervical neck. Skin: Warm, dry, no erythema, no rash. Back: No step-off, no tenderness. Extremities: Right shoulder without obvious deformity or limitation. Neurologic: Alert and oriented x4, no focal deficits noted. Heart Score: C/O Chest Pain: No Course & Med Decision Making: Course & Med Decision Making Pertinent Labs and Imaging studies reviewed. (See chart for details) Dragon Disclaimer: Simón Disclaimer: This electronic medical record was generated, in whole or in part, using a voice recognition dictation system. Departure Departure: Impression: Primary Impression: Pain, joint, shoulder region, left Disposition: 01 HOME / SELF CARE / HOMELESS Condition: IMPROVED Referrals: PCP,NO (PCP) ODESSA LAZARO MD Patient Instructions: Shoulder Pain, [id number], Shoulder, Range of Motion Exercises Additional Instructions: [facility] orthopedics Call for appointment [phone] EMERGENCY DEPARTMENT GENERAL DISCHARGE INSTRUCTIONS Thank you for coming to [facility] (ED) today and trusting us with you care. We trust that you had a positive experience in our Emergency Department. If you wish to speak to the department management, you may call the director at [phone]. YOUR FOLLOW UP INSTRUCTIONS ARE FOLLOWS: 1. Follow up with your primary care doctor. If you do not have a primary doctor, please ask for a resource list of physicians or clinics that may be able to assist you with follow up care. 2. The emergency provider has interpreted your imaging studies, if any were ordered. The radiology registration scheduling specialist also reviewed them. If there is a change in the findings, you will be notified in 48 hours when at all possible. 3. If a lab test or culture has been done, your results will be reviewed and you will be notified if you need a change in treatment. 4. Follow instructions verbalized to you and refer to the printouts if needed. ADDITIONAL INSTRUCTIONS AND INFORMATION: 1. Your care today has been supervised by a physician who is specially trained in emergency care. Many problems require more than one evaluation for a complete diagnosis and treatment. We recommend that you schedule your follow up appointment as recommended to ensure complete treatment of you illness or injury. If you are unable to obtain follow up care and continue to have a problem, or if your condition worsens, we recommend that you return to the ED. 2. We are not able to safely determine your condition over the phone nor are we able to give sound medical advice over the phone. For these safety reasons, if you call for medical advice we will ask you to come to the ED for further evaluation. 3. If you have any questions regarding these discharge instructions please call the ED at [phone]. SAFETY INFORMATION: In the interest of safety, wellness, and injury prevention; we encourage you to wear your seat belt, if you smoke; quite smoking, and we encourage family to use a protective helmet for bicycling and other sporting events that present an increased risk for head injury. IF YOUR SYMPTOMS WORSEN OR NEW SYMPTOMS DEVELOP, OR YOU HAVE CONCERNS ABOUT YOUR CONDITION; OR IF YOUR CONDITION WORSENS WHILE YOU ARE WAITING FOR YOUR FOLLOW UP APPOINTMENT; EITHER CONTACT YOUR PRIMARY CARE DOCTOR, THE PHYSICIAN WHOSE NAME AND NUMBER YOU WERE GIVEN, OR RETURN TO THE ED IMMEDIATELY. Scripts Naproxen (NAPROXEN) 500 Mg Tablet 1 TAB PO BID for pain, #9 TAB 0 Refills Prov: ODALIS DOBSON 09/16/21 Orphenadrine Citrate (ORPHENADRINE CITRATE) 100 Mg Tablet.er 1 TAB PO BID for muscle pain, #9 TAB 0 Refills Prov: ODALIS DOBSON 09/16/21 ODALIS DOBSON Sep 16, 2021 12:56
[2021-09-16 13:20] VITALS: BP 156/92
== END 2021-09-16 13:23 | disposition home or self-care (01) ==
LOC: ER 12:20
DX: M25.512 Pain in left shoulder (principal); M54.2 Cervicalgia; M19.90 Unspecified osteoarthritis, unspecified site; I10 Essential (primary) hypertension; F17.210 Nicotine dependence, cigarettes, uncomplicated; Z88.0 Allergy status to penicillin; Z88.6 Allergy status to analgesic agent
CPT/HCPCS: 96372; 99284; J1885; J2360

== ENCOUNTER 2021-10-13 10:24 | Emergency (ER) | payer SELFPAY ==
[~2021-10-13] VITALS: Ht 165.1 cm; Wt 84.1 kg
[~2021-10-13 10:24] MED LIST changes: +ORPH-16 PO
--- NOTE | 2021-10-13 10:40 | EKG ---
[address] [address] Test Date: 2021-10-13 Test Time: 10:38:16 Pat Name: BRITTNEY SMITH Department: Room: Gender: F Favor Maker: [place] : 1960 Requested By: HUMBERTO NASCIMENTO Order Number: [id number] Reading MD: García Gray MD Measurements Intervals [place] Rate: 88 P: 48 RI: 184 QRS: 26 QRSD: 100 T: -30 QT: 400 QTc: 488 Interpretive Statements SINUS RHYTHM LEFT ATRIAL ABNORMALITY T ABNORMALITY IN ANTERIOR LEADS INFEROLATERAL LEADS PROLONGED QT ABNORMAL ECG Electronically Signed On 10-14-2021 9:54:57 NUTRITIONAL SERVICES DIRECTOR by García Gray MD
[2021-10-13] MEDS ORDERED: KETOROLAC 30 MG/ML VIAL. IVP ONE (10:45)
[2021-10-13] MEDS ORDERED: ORPHENADRINE CITRATE 60 MG/2 ML VIAL. IM ONE (10:45)
[2021-10-13] MEDS ORDERED: IV NORMAL SALINE 1,000ML 1,000 ML IV SCH (10:45)
[2021-10-13 11:06] LABS: BASO # 0.1 x10^3/uL (0.0-0.2); BASO % 1 % (0-3); EOS # 0.1 x10^3/uL (0.0-0.7); EOS % 3 % (0-3); HEMATOCRIT 41.9 % (36.0-47.0); HEMOGLOBIN 13.9 g/dL (12.0-15.5); LYMPH # 1.7 x10^3/uL (1.0-4.8); LYMPH % 42 % (24-48); MEAN CORPUSCULAR HEMOGLOBIN 31 pg (25-35); MEAN CORPUSCULAR HGB CONC 33 g/dL (31-37); MEAN CORPUSCULAR VOLUME 94 fL (79-100); MONO # 0.3 x10^3/uL (0.0-1.1); MONO % 7 % (0-9); NEUT # 1.9 x10^3uL (1.8-7.7); NEUT % 47 % (31-73); PLATELET COUNT 259 x10^3/uL (140-400); RED BLOOD COUNT 4.44 x10^6/uL (3.50-5.40); RED CELL DISTRIBUTION WIDTH 13.3 % (11.5-14.5); WHITE BLOOD COUNT 4.1 x10^3/uL (4.0-11.0)
--- NOTE | 2021-10-13 11:07 | PHYS DOC ---
Past History Past Medical History: Arthritis, Bronchitis, Diverticulitis, Hypertension (HUMBERTO NASCIMENTO APRN) Past Surgical History: Other Additional Past Surgical Histo: HERNIA REPAIR (HUMBERTO NASCIMENTO APRN) Smoking: Cigarettes, Less than 1pk/day Alcohol Use: Rarely Drug Use: None (HUMBERTO NASCIMENTO APRN) General Adult EDM: Chief Complaint: CHEST PAIN HPI: HPI: Patient is a 61-year-old female who presents to the emergency department for left-sided neck pain that radiates into her arm and to her left shoulder/chest that started 2 months ago. Patient reports that the pain has gotten worse over the last 2 days. Patient has a history of left-sided cervical radiculopathy and she reports that this pain feels like that pain. She states that the pain is 10 out of 10 and sharp, it is constant and worse with movement. Patient reports that she normally takes Tylenol, ibuprofen and Flexeril for this pain but she ran out of her Flexeril 1 month ago. Patient has not taken any treatment for her pain for the last 2 days. Patient has a history of hypertension and is a current some day smoker. Patient denies nausea, vomiting, shortness of breath, fevers. Patient reports that she has not been taking care of herself like she usually does because she recently found out that her boyfriend has esophageal cancer and has been taking care of him. (HUMBERTO NASCIMENTO APRN) Review of Systems: Review of Systems: Constitutional: See HPI HENT: See HPI Respiratory: See HPI Cardiovascular: See HPI GI: See HPI Musculoskeletal: See HPI Neurologic: See HPI (HUMBERTO NASCIMENTO APRN) Current Medications: Current Meds: Current Medications Medications (Trade) Dose Ordered Sig/Ld Start Time Stop Time Status Last Admin Dose Admin Ketorolac Tromethamine (Toradol 30mg Vial) 30 mg 1X ONCE 10/13/21 10:45 10/13/21 10:46 Orphenadrine Citrate (Norflex) 60 mg 1X ONCE 10/13/21 10:45 10/13/21 10:46 UNV Sodium Chloride 1,000 ml @ 1,000 mls/hr Q1H 10/13/21 10:45 10/13/21 11:44 (HUMBERTO NASCIMENTO APRN) Allergies: Allergies: Allergies Coded Allergies Type Severity Reaction Last Updated Verified Penicillins Allergy Unknown 10/13/21 Yes tramadol Allergy Unknown 10/13/21 Yes (HUMBERTO NASCIMENTO APRN) Physical Exam: PE: Constitutional: Well developed, well nourished, no acute distress, non-toxic appearance. [] HENT: Normocephalic, atraumatic, bilateral external ears normal, oropharynx moist, no oral exudates, nose normal. [] Eyes: PERRL, EOMI, conjunctiva normal, no discharge. [] Neck: Normal range of motion, supple, no stridor, left-sided trapezius muscle tenderness with palpation Cardiovascular:Heart rate regular rhythm, no murmur, left-sided shoulder/chest pain is reproducible with palpation [] Lungs & Thorax: Bilateral breath sounds clear to auscultation [] Abdomen: Bowel sounds normal, soft, no tenderness, no masses, no pulsatile masses. [] Skin: Warm, dry, no erythema, no rash. [] Back: Normal range of motion Extremities: No tenderness, no cyanosis, no clubbing, ROM intact, no edema. [] Neurologic: Alert and oriented X 3, normal motor function, normal sensory function, no focal deficits noted. [] Psychologic: Affect normal, judgement normal, mood normal. [] (HUMBERTO NASCIMENTO APRN) Current Patient Data: Labs: Laboratory Tests Test 10/13/21 10:35 White Blood Count 4.1 x10^3/uL Red Blood Count 4.44 x10^6/uL Hemoglobin 13.9 g/dL Hematocrit 41.9 % Mean Corpuscular Volume 94 fL Mean Corpuscular Hemoglobin 31 pg Mean Corpuscular Hemoglobin Concent 33 g/dL Red Cell Distribution Width 13.3 % Platelet Count 259 x10^3/uL Neutrophils (%) (Auto) 47 % Lymphocytes (%) (Auto) 42 % Monocytes (%) (Auto) 7 % Eosinophils (%) (Auto) 3 % Basophils (%) (Auto) 1 % Neutrophils # (Auto) 1.9 x10^3uL Lymphocytes # (Auto) 1.7 x10^3/uL Monocytes # (Auto) 0.3 x10^3/uL Eosinophils # (Auto) 0.1 x10^3/uL Basophils # (Auto) 0.1 x10^3/uL Sodium Level 144 mmol/L Potassium Level 3.5 mmol/L Chloride Level 105 mmol/L Carbon Dioxide Level 27 mmol/L Anion Gap 12 Blood Urea Nitrogen 11 mg/dL Creatinine 0.6 mg/dL Estimated GFR (Cockcroft-Gault) 122.6 BUN/Creatinine Ratio 18 Glucose Level 113 mg/dL Calcium Level 9.0 mg/dL Total Bilirubin 0.9 mg/dL Aspartate Amino Transf (AST/SGOT) 19 U/L Alanine Aminotransferase (ALT/SGPT) 29 U/L Alkaline Phosphatase 81 U/L Troponin I High Sensitivity 35 ng/L Total Protein 7.3 g/dL Albumin 4.1 g/dL Albumin/Globulin Ratio 1.3 Current Medications Medications (Trade) Dose Ordered Sig/Ld Route PRN Reason Start Time Stop Time Status Last Admin Dose Admin Sodium Chloride 1,000 ml @ 1,000 mls/hr Q1H IV 10/13/21 10:45 10/13/21 11:44 Ketorolac Tromethamine (Toradol 30mg Vial) 30 mg 1X ONCE IVP 10/13/21 10:45 10/13/21 10:59 DC 10/13/21 11:00 Orphenadrine Citrate (Norflex) 60 mg 1X ONCE IM 10/13/21 10:45 10/13/21 10:59 DC 10/13/21 11:00 Vital Signs: Vital Signs Date Time Temp Pulse Resp B/P (MAP) Pulse Ox O2 Delivery O2 Flow Rate FiO2 10/13/21 10:30 98.4 92 18 158/105 (122) 97 Room Air (HUMBERTO NASCIMENTO SALES AND SERVICE CHANGE LEADER) EKG: EKG: EKG performed by ER staff at 1038 shows sinus rhythm with a rate of 88, QTc is 488, QT intervals 400, no STEMI read by Dr. Martinez [] (HUMBERTO NASCIMENTO SALES AND SERVICE CHANGE LEADER) Radiology/Procedures: Radiology/Procedures: []PROCEDURE: PORTABLE CHEST 1V EXAMINATION: Chest radiograph. VIEWS: Single AP view of the chest COMPARISON: 12/31/2020 INDICATION:61 years, Female, chest pain. FINDINGS: Patient is slightly rotated to the right. Normal cardiomediastinal silhouette. No focal consolidation. No pleural effusion or pneumothorax. No acute osseous process. IMPRESSION: No acute cardiopulmonary process. Electronically signed by: Sophia Mary DO (10/13/2021 11:15 AM) [facility] DICTATED AND SIGNED BY: SOPHIA MARY DO DATE: 10/13/21 1113 CC: HUMBERTO NASCIMENTO APRN; PCP,NO ~MTH0 0 PROCEDURE: CERVICAL SPINE 2-3V Study: XR CERVICAL SPINE 2-3V Indication: Neck pain. Comparison: None. Findings: Straightening of cervical lordosis. Discogenic arthrosis with mild disc space height loss at C4-C5 and C6-C7. Degenerative endplate ridging at additional levels without loss of disc space height. Disc osteophyte complex formation best appreciated from C4-C5 through C6-C7. The most pronounced uncovertebral joint hypertrophy is on the right at C4-C5. The most notable facet arthrosis as on the right at C2-C3. Intact dens. Normal alignment across the C1-C2 lateral masses. Unremarkable prevertebral soft tissues and visualized lungs. Impression: Degenerative changes greatest from C4-C5 through C6-C7, as above. Electronically signed by: PAVEL DESHPANDE MD (10/13/2021 11:44 AM) [facility] DICTATED AND SIGNED BY: PAVEL DESHPANDE MD DATE: 10/13/21 1141 CC: HUMBERTO NASCIMENTO APRN; PCP,NO ~MTH0 0 (HUMBERTO NASCIMENTO APRN) Heart Score: C/O Chest Pain: N/A HEART Score for Chest Pain: HEART Score for Chest Pain Response (Comments) Value History Slighlty/Non-Suspicious 0 ECG Nonspecific Repolarizatio 1 Age >45 - < 65 1 Risk Factors 1 or 2 Risk Factors 1 Troponin < Normal Limit 0 Total 3 Risk Factors: Risk Factors: DM, Current or recent (<one month) smoker, HTN, HLP, family history of CAD, obesity. Risk Scores: Score 0 - 3: 2.5% MACE over next 6 weeks - Discharge Home Score 4 - 6: 20.3% MACE over next 6 weeks - Admit for Clinical Observation Score 7 - 10: 72.7% MACE over next 6 weeks - Early Invasive Strategies (HUMBERTO NASCIMENTO APRN) Course & Med Decision Making: Course & Med Decision Making Pertinent Labs and Imaging studies reviewed. (See chart for details) [] Patient presents to the emergency department today for left-sided neck pain that radiates into her arm into her left side of her shoulder and chest. She reports that the pain started 2 months ago but is worsened over the last 2 days. Patient has a history of cervical radiculopathy and reports that this pain feels like the pain she experiences with that. She is ran out of her Flexeril that she normally takes with this pain. Pain is worse with movement and is reproducible with palpation. Work-up in the ER consisted of blood work, EKG and chest x-ray to rule out any ACS because of her chest pain. Patient also had a cervical spine image and was treated with anti-inflammatory medications and a muscle relaxer. Patient's blood work is unremarkable. Patient's heart score is 3. Chest x-ray was unremarkable. Patient's imaging of her cervical spine showed degenerative changes. Following treatment in the emergency department, some relief in her symptoms. Patient given another dose of pain medication. Patient's pain is likely due to her cervical radiculopathy. She will be discharged home with Flexeril and is advised to take Tylenol and ibuprofen at home. Advised to follow-up with her primary care provider tomorrow. I discussed with patient all findings and diagnostic testing as well as the need to follow-up with PCP for further evaluation and treatment or return to the ER if any new or worsening symptoms. Strict return precautions were also discussed at length. Patient voiced understanding and agreement with the plan. Patient is hemodynamically stable at the time of disposition. (HUMBERTO NASCIMENTO APRN) Dragon Disclaimer: Dragon Disclaimer: This electronic medical record was generated, in whole or in part, using a voice recognition dictation system. (HUMBERTO NASCIMENTO APRN) Attending Co-Sign The patient was seen and interviewed as well as examined at the bedside. The chart was reviewed. The case was discussed. Agree with the plan of care. (RODNEY MARTINEZ DO) Departure Departure: Impression: Primary Impression: Cervical radicular pain Additional Impression: Chest wall pain Disposition: HOME / SELF CARE / HOMELESS Condition: GOOD Referrals: PCP,NO (PCP) TANJA GILMORE MD Patient Instructions: Cervical Radiculopathy, Chest Wall Pain Additional Instructions: You were seen in the emergency department for left-sided neck pain that radiates into your arm and your chest. Your blood work was unremarkable. Your chest x- ray did not show any acute findings. Your neck x-ray did show some degenerative arthritic changes. Pain is likely due to your cervical radiculopathy. Treatment for this includes Tylenol and ibuprofen as well as muscle relaxers. You are being discharged home with a muscle relaxer called Matthew. This medication may cause sedation so do not take when you need to be alert, driving a vehicle or with alcohol. Please follow-up with your primary care provider tomorrow regarding your ER visit. Please return to the emergency department if you develop worsening of your pain, intractable nausea or vomiting, high fevers refractory to treatment, shortness of breath, decreased range of motion in your extremities, decreased sensation in your extremities or any new or worsening concerns.You were given referral information for clinics, primary care providers offices and a sales rep. Scripts Cyclobenzaprine Hcl (CYCLOBENZAPRINE HCL) 5 Mg Tablet 1 TAB PO TID for muscle spasm for 10 Days, #30 TAB 0 Refills Prov: HUMBERTO NASCIMENTO APRN 10/13/21 HUMBERTO NASCIMENTO APRN Oct 13, 2021 11:07 RODNEY MARTINEZ DO Oct 14, 2021 11:06
[2021-10-13 11:11] LABS: CREATININE 0.6 mg/dL (0.6-1.0); GFR 122.6; POTASSIUM 3.5 mmol/L (3.5-5.1)
--- NOTE | 2021-10-13 11:17 | RAD ---
EXAMINATION: Chest radiograph. VIEWS: Single AP view of the chest COMPARISON: 12/31/2020 INDICATION:61 years, Female, chest pain. FINDINGS: Patient is slightly rotated to the right. Normal cardiomediastinal silhouette. No focal consolidation . No pleural effusion or pneumothorax. No acute osseous process. IMPRESSION: No acute cardiopulmonary process. Electronically signed by: Govind Mary DO (10/13/2021 11:15 AM) [facility]
[2021-10-13 11:18] LABS: ALBUMIN 4.1 g/dL (3.4-5.0); ALBUMIN/GLOBULIN RATIO 1.3 (1.0-1.7); TOTAL BILIRUBIN 0.9 mg/dL (0.2-1.0); TOTAL PROTEIN 7.3 g/dL (6.4-8.2)
--- NOTE | 2021-10-13 11:46 | RAD ---
Study: XR CERVICAL SPINE 2-3V Indication: Neck pain. Comparison: None. Findings: Straightening of cervical lordosis. Discogenic arthrosis with mild disc space height loss at C4-C5 an d C6-C7. Degenerative endplate ridging at additional levels without loss of disc space height. Disc o steophyte complex formation best appreciated from C4-C5 through C6-C7. The most pronounced uncoverteb ral joint hypertrophy is on the right at C4-C5. The most notable facet arthrosis as on the right at C 2-C3. Intact dens. Normal alignment across the C1-C2 lateral masses. Unremarkable prevertebral soft tissues and visualized lungs. Impression: Degenerative changes greatest from C4-C5 through C6-C7, as above. Electronically signed by: PAVEL DESHPANDE MD (10/13/2021 11:44 AM) [facility]
[2021-10-13] MEDS ORDERED: CYCL5TAB PO (11:53)
[2021-10-13 13:51] VITALS: BP 147/80
== END 2021-10-13 13:52 | disposition home or self-care (01) ==
LOC: ER 10:24
DX: M54.12 Radiculopathy, cervical region (principal); R07.89 Other chest pain; M19.90 Unspecified osteoarthritis, unspecified site; I10 Essential (primary) hypertension; F17.210 Nicotine dependence, cigarettes, uncomplicated; Z88.0 Allergy status to penicillin; Z88.8 Allergy status to other drugs, medicaments and biological substances
CPT/HCPCS: 36415; 71045; 72040; 80053; 84484; 85025; 93005; 96361; 96372; 96374; 96375; 99285; J1885; J2360; J3010; J7030